=== PATIENT | female | born 1940 | race Caucasian/White ===

== ENCOUNTER 2018-07-05 09:59 | Inpatient (IN) | payer MEDICARE, BC ==
--- NOTE | 2018-07-05 18:02 | PCM.HP ---
H&P History of Present Illness - General Date of Service: 07/05/18 Admit Problem/Dx: Admission Diagnosis/Problem Admission Diagnosis/Problem CVA, Cerebrovascular accident Source of Information: Patient, Old Records History Limitations: Reports: No Limitations - History of Present Illness Initial Comments - Free Text/Narative: Jose a 78-year-old female with a history of hypertension, rheumatoid arthritis, developmental delay who initially presented with right- sided weakness, confusion,speech changes.Workup revealed a left MCA M2 occlusion on CTAand patient was taken for mechanical thrombectomy on 06/30 by neuro vascular surgery. Echo was also done which demonstrated dilated cardiomyopathy with an ejection fraction of 20%. Cardiology was consulted and a cardiac angiogram was done showing totalLAD proximal occlusion and no intervention was done at this time. Electrophysiology was consulted and a loop recorder was placed for monitoring arrhythmias. Transferred here for rehabilitation. - Related Data Allergies/Adverse Reactions: Allergies Allergy/AdvReac Type Severity Reaction Status Date / Time No Known Allergies Allergy Verified 07/05/18 13:31 Home Medications: Home Meds Acetaminophen [Tylenol Arthritis] 650 mg PO Q8H PRN 07/05/18 [History] Aspirin [Halfprin] 81 mg PO DAILY 07/05/18 [History] Losartan [Cozaar] 25 mg PO DAILY 07/05/18 [History] Metoprolol Succinate [Toprol XL] 12.5 mg PO DAILY 07/05/18 [History] Warfarin Sliding Scale [Coumadin Sliding Scale] 1 ea PO DAILY 07/05/18 [History] atorvaSTATin [Lipitor] 10 mg PO DAILY 07/05/18 [History] Past Medical History HEENT History: Reports: Impaired Vision Cardiovascular History: Reports: Hypertension Other Cardiovascular History: Family Hx: angina, afib, CHF, NH, HTN, high cholesterol, Gastrointestinal History: Reports: Cholelithiasis Other Musculoskeletal History: Hx: back pain and arm fx Hematologic History: Reports: Anemia Oncologic (Cancer) History: Reports: Bone Dermatologic History: Reports: Eczema - Infectious Disease History Infectious Disease History: Reports: Chicken Pox, Measles, Mumps - Past Surgical History HEENT Surgical History: Reports: Cataract Surgery, Other (See Below) Other HEENT Surgeries/Procedures: bilat GI Surgical History: Reports: Appendectomy, Cholecystectomy Female Surgical History: Reports: Hysterectomy, Oophorectomy Musculoskeletal Surgical History: Reports: Knee Replacement, Other (See Below) Other Musculoskeletal Surgeries/Procedures:: bilat. Oncologic Surgical History: Reports: Bone Marrow Aspiration Social & Family History - Tobacco Use Smoking Status *Q: Never Smoker Second Hand Smoke Exposure: No - Caffeine Use Caffeine Use: Reports: Coffee - Recreational Drug Use Recreational Drug Use: No H&P Review of Systems - Review of Systems: Review Of Systems: See Below General: Reports: No Symptoms HEENT: Reports: No Symptoms Pulmonary: Reports: No Symptoms Cardiovascular: Reports: Chest Pain Gastrointestinal: Reports: No Symptoms Genitourinary: Reports: No Symptoms Musculoskeletal: Reports: Muscle Stiffness Skin: Reports: Lesions (Right leg under Dr. Carcamo's care.) Psychiatric: Reports: No Symptoms Neurological: Reports: Difficulty Walking, Weakness, Change in Speech Hematologic/Lymphatic: Reports: No Symptoms Immunologic: Reports: No Symptoms Exam - Exam Exam: See Below - Vital Signs Vital Signs: Last Vital Signs Temp 98.2 F 07/05/18 13:53 Pulse 71 07/05/18 13:53 Resp 20 07/05/18 13:53 BP 133/45 L 07/05/18 13:53 Pulse Ox 96 07/05/18 13:53 Weight: 263 lb - Exam General: Alert, Oriented, Cooperative HEENT: PERRLA, Hearing Intact, Posterior Pharynx Clear, TMs Clear Neck: Trachea Midline, Lymphadenopathy Lungs: Clear to Auscultation, Normal Respiratory Effort. No: Crackles, Rales, Rhonchi, Rub, Stridor Cardiovascular: Regular Rate, Regular Rhythm, Normal S1, Normal S2. No: Systolic Murmur, Diastolic Murmur GI/Abdominal Exam: Normal Bowel Sounds, Soft, Non-Tender, No Organomegaly, No Distention Back Exam: Normal Inspection, Full Range of Motion Extremities: Normal Inspection, Normal Range of Motion, Non-Tender, Other (Mild weakness right arm and leg compared to left.) Skin: Warm, Dry, Intact Neurological: Normal Tone, Other (Patient does not enunciate words well. Her sister says it's about normal for her from before the stroke.) Neuro Extensive - Mental Status: Alert, Oriented x3, Normal Cognition Psychiatric: Alert, Normal Affect, Normal Mood - Problem List (1) Ischemic stroke SNOMED Code(s): 544600122 ICD Code: I63.9 - CEREBRAL INFARCTION, UNSPECIFIED Status: Acute Current Visit: Yes (2) Coronary artery disease SNOMED Code(s): 47910075 ICD Code: I25.10 - ATHSCL HEART DISEASE OF [place] CORONARY ARTERY W/O ANG PCTRS Status: Acute Current Visit: Yes (3) HTN (hypertension) SNOMED Code(s): 38015300 ICD Code: I10 - ESSENTIAL (PRIMARY) HYPERTENSION Status: Acute Current Visit: Yes (4) Dilated cardiomyopathy SNOMED Code(s): 583501054 ICD Code: I42.0 - DILATED CARDIOMYOPATHY Status: Acute Current Visit: Yes Problem List Initiated/Reviewed/Updated: Yes Orders Last 24hrs: Active Orders 24 hr Category Date Time Status Admission Status [Patient Status] [ADT] Routine ADT 07/05/18 13:05 Active Patient Status [ADT] Routine ADT 07/05/18 14:13 Active Height and Weight [RC] FR Care 07/05/18 14:13 Active May Shower [RC] ASDIRECTED Care 07/05/18 14:13 Active Oxygen Therapy [RC] PRN Care 07/05/18 14:13 Active Up With Assistance [RC] ASDIRECTED Care 07/05/18 14:13 Active VTE/DVT Education [RC] Per Unit Routine Care 07/05/18 14:13 Active Vital Signs [RC] 08 Care 07/05/18 14:13 Active OT Evaluation and Treatment [CONS] Routine Cons 07/05/18 14:13 Active PT Evaluation and Treatment [CONS] Routine Cons 07/05/18 14:13 Active Regular Diet [DIET] Diet 07/05/18 Dinner Active INR,PT,PROTHROMBIN TIME [COAG] Q2D Lab 07/08/18 06:00 Ordered INR,PT,PROTHROMBIN TIME [COAG] Q2D Lab 07/10/18 06:00 Ordered INR,PT,PROTHROMBIN TIME [COAG] Q2D Lab 07/12/18 06:00 Ordered INR,PT,PROTHROMBIN TIME [COAG] Q2D Lab 07/14/18 06:00 Ordered INR,PT,PROTHROMBIN TIME [COAG] Q2D Lab 07/16/18 06:00 Ordered Acetaminophen [Tylenol Arthritis Pain] Med 07/05/18 14:12 Active 650 mg PO Q8H PRN Aspirin [Halfprin] Med 07/06/18 09:00 Active 81 mg PO DAILY Losartan [Cozaar] Med 07/06/18 09:00 Active 25 mg PO DAILY Metoprolol Succinate [Toprol XL] Med 07/06/18 09:00 Active 12.5 mg PO DAILY Warfarin Sliding Scale [Coumadin Sliding Scale] Med 07/06/18 09:00 Pending 1 each PO DAILY Warfarin [Coumadin] Med 07/07/18 16:00 Once 5 mg PO ONETIME ONE Warfarin [Coumadin] Med 07/06/18 16:00 Active 7.5 mg PO ONETIME ONE atorvaSTATin [Lipitor] Med 07/06/18 09:00 Active 10 mg PO DAILY Resuscitation Status Routine Resus Stat 07/05/18 14:13 Ordered Medication Orders Acetaminophen (Tylenol Arthritis Pain) 650 mg PO Q8H PRN PRN Reason: Pain Aspirin (Halfprin) 81 mg PO DAILY KELLY Atorvastatin Calcium (Lipitor) 10 mg PO DAILY KELLY Losartan Potassium (Cozaar) 25 mg PO DAILY KELLY Metoprolol Succinate (Toprol Xl) 12.5 mg PO DAILY KELLY Warfarin Sodium (Coumadin Sliding Scale) 1 each PO DAILY KELLY Warfarin Sodium 2.5 mg/ (Warfarin Sodium 5 mg) 7.5 mg PO ONETIME ONE Stop: 07/06/18 16:01 Warfarin Sodium (Coumadin) 5 mg PO ONETIME ONE Stop: 07/07/18 16:01 Assessment/Plan Comment:: 1. Admit to swing bed. 2. Continue the same medications she was on and [facility]. 3. Up with assist. 4. Cardiac diet. 5. PT/OT. 6. Patient has some lesions Dr. Carcamo is looking at. Courtesy consult next week.
[2018-07-06] MEDS ORDERED: Warfarin Sliding Scale PO SCH (09:00)
[2018-07-06] MEDS: atorvaSTATin 10 MG Tab PO SCH (09:01)
[2018-07-06] MEDS: Metoprolol Succinate 25 MG Tab.ER PO SCH (09:01)
[2018-07-06] MEDS: Aspirin 81 MG Tab.EC PO SCH (09:01)
[2018-07-06] MEDS: Losartan 25 MG Tab PO SCH (09:02)
[2018-07-06] MEDS ORDERED: Warfarin 2.5 MG, Warfarin 5 MG PO ONE ×2 (16:00)
[2018-07-07] MEDS: atorvaSTATin 10 MG Tab PO SCH (08:40)
[2018-07-07] MEDS: Aspirin 81 MG Tab.EC PO SCH (08:40)
[2018-07-07] MEDS: Metoprolol Succinate 25 MG Tab.ER PO SCH (08:40)
[2018-07-07] MEDS: Losartan 25 MG Tab PO SCH (08:41)
--- NOTE | 2018-07-07 09:53 | PCM.PN ---
- General Info Date of Service: 07/07/18 Admission Dx/Problem (Free Text): Patient without complaints. She denies chest pain, shortness of breath, speech difficulty or swallowing difficulty. Wound in the right leg is being managed every days doing well and less weeping. - Patient Data Vitals - Most Recent: Last Vital Signs Temp 97.6 F 07/07/18 08:00 Pulse 78 07/07/18 08:40 Resp 20 07/07/18 08:00 BP 102/55 L 07/07/18 08:41 Pulse Ox 96 07/07/18 08:00 Weight - Most Recent: 263 lb Med Orders - Current: Current Medications Acetaminophen (Tylenol Arthritis Pain) 650 mg PO Q8H PRN PRN Reason: Pain Aspirin (Halfprin) 81 mg PO DAILY [facility] Last Admin: 07/07/18 08:40 Dose: 81 mg Atorvastatin Calcium (Lipitor) 10 mg PO DAILY [facility] Last Admin: 07/07/18 08:40 Dose: 10 mg Losartan Potassium (Cozaar) 25 mg PO DAILY [facility] Last Admin: 07/07/18 08:41 Dose: 25 mg Metoprolol Succinate (Toprol Xl) 12.5 mg PO DAILY [facility] Last Admin: 07/07/18 08:40 Dose: 12.5 mg Warfarin Sodium (Coumadin Sliding Scale) 1 each PO DAILY [facility] Warfarin Sodium (Coumadin) 5 mg PO ONETIME ONE Stop: 07/07/18 16:01 Discontinued Medications Warfarin Sodium 2.5 mg/ (Warfarin Sodium 5 mg) 7.5 mg PO ONETIME ONE Stop: 07/06/18 16:01 Last Admin: 07/06/18 15:45 Dose: 7.5 mg - Exam General: Oriented Lungs: Clear to Auscultation, Normal Respiratory Effort Cardiovascular: Regular Rate, No Murmurs Extremities: No Pedal Edema Skin: Other (Ulcers right leg healing nicely. Not able to see any granulation tissue because is covered over anterior posterior) - Problem List & Annotations (1) Ischemic stroke SNOMED Code(s): 540170096 Code(s): I63.9 - CEREBRAL INFARCTION, UNSPECIFIED Status: Acute Current Visit: Yes (2) Coronary artery disease SNOMED Code(s): 10836809 Code(s): I25.10 - ATHSCL HEART DISEASE OF [place] CORONARY ARTERY W/O ANG PCTRS Status: Acute Current Visit: Yes (3) HTN (hypertension) SNOMED Code(s): 22527301 Code(s): I10 - ESSENTIAL (PRIMARY) HYPERTENSION Status: Acute Current Visit: Yes (4) Dilated cardiomyopathy SNOMED Code(s): 009323093 Code(s): I42.0 - DILATED CARDIOMYOPATHY Status: Acute Current Visit: Yes (5) Leg ulcer SNOMED Code(s): 91410608, 529195394 Code(s): L97.909 - NON-PRS CHRONIC ULC UNSP PRT OF UNSP LOW LEG W UNSP SEVERITY Status: Acute Current Visit: Yes - Problem List Review Problem List Initiated/Reviewed/Updated: Yes - My Orders Last 24 Hours: My Active Orders 07/06/18 09:00 Aspirin [Halfprin] 81 mg PO DAILY Losartan [Cozaar] 25 mg PO DAILY Metoprolol Succinate [Toprol XL] 12.5 mg PO DAILY Warfarin Sliding Scale [Coumadin Sliding Scale] 1 each PO DAILY atorvaSTATin [Lipitor] 10 mg PO DAILY 07/07/18 16:00 Warfarin [Coumadin] 5 mg PO ONETIME ONE 07/08/18 06:00 INR,PT,PROTHROMBIN TIME [COAG] Q2D 07/10/18 06:00 INR,PT,PROTHROMBIN TIME [COAG] Q2D 07/12/18 06:00 INR,PT,PROTHROMBIN TIME [COAG] Q2D 07/14/18 06:00 INR,PT,PROTHROMBIN TIME [COAG] Q2D 07/16/18 06:00 INR,PT,PROTHROMBIN TIME [COAG] Q2D - Plan Plan:: 1 continue current care. 2. Courtesy consult for Dr. Carcamo in the a.m. in regards to wound care he was doing outpatient before she ended up in the hospital
[2018-07-07] MEDS: Nitroglycerin 0.4 MG Tab.SL SL PRN ×2 (14:35→15:33)
[2018-07-07] MEDS ORDERED: Sodium Chloride 0.9% 500 ML IV ONE (14:45)
[2018-07-07] MEDS ORDERED: Warfarin 5 MG Tab PO ONE (16:00)
--- NOTE | 2018-07-07 17:09 | PCM.PN ---
- General Info Date of Service: 07/07/18 Admission Dx/Problem (Free Text): Patient had retrosternal chest pressure today with no arm pain, nausea, diaphoresis shortness of breath. Her blood pressure was low so she was placed in the lying position and EKG was done and troponin. She was given 2 nitroglycerin sublingual and her chest pain went away. She is given some IV fluids also - Patient Data Vitals - Most Recent: Last Vital Signs Temp 97.6 F 07/07/18 08:00 Pulse 79 07/07/18 16:00 Resp 20 07/07/18 16:00 BP 107/62 07/07/18 16:00 Pulse Ox 100 07/07/18 16:00 Weight - Most Recent: 263 lb Lab Results Last 24 Hours: Laboratory Results - last 24 hr 07/07/18 Range/Units 14:25 Troponin I 0.031 (<0.017-0.056) ng/mL Med Orders - Current: Current Medications Acetaminophen (Tylenol Arthritis Pain) 650 mg PO Q8H PRN PRN Reason: Pain Aspirin (Halfprin) 81 mg PO DAILY [facility] Last Admin: 07/07/18 08:40 Dose: 81 mg Atorvastatin Calcium (Lipitor) 10 mg PO DAILY [facility] Last Admin: 07/07/18 08:40 Dose: 10 mg Losartan Potassium (Cozaar) 25 mg PO DAILY [facility] Last Admin: 07/07/18 08:41 Dose: 25 mg Metoprolol Succinate (Toprol Xl) 12.5 mg PO DAILY [facility] Last Admin: 07/07/18 08:40 Dose: 12.5 mg Nitroglycerin (Nitrostat) 0.4 mg SL Q5M PRN PRN Reason: Chest Pain Last Admin: 07/07/18 15:33 Dose: 0.4 mg Warfarin Sodium (Coumadin Sliding Scale) 1 each PO DAILY [facility] Discontinued Medications Sodium Chloride (Normal Saline) 500 mls @ 500 mls/hr IV .BOLUS ONE Stop: 07/07/18 15:44 Last Admin: 07/07/18 14:45 Dose: 500 mls/hr Warfarin Sodium 2.5 mg/ (Warfarin Sodium 5 mg) 7.5 mg PO ONETIME ONE Stop: 07/06/18 16:01 Last Admin: 07/06/18 15:45 Dose: 7.5 mg Warfarin Sodium (Coumadin) 5 mg PO ONETIME ONE Stop: 07/07/18 16:01 Last Admin: 07/07/18 16:16 Dose: 5 mg - Exam Lungs: Clear to Auscultation, Normal Respiratory Effort - Problem List & Annotations (1) Ischemic stroke SNOMED Code(s): 711170728 Code(s): I63.9 - CEREBRAL INFARCTION, UNSPECIFIED Status: Acute Current Visit: Yes (2) Coronary artery disease SNOMED Code(s): 33940735 Code(s): I25.10 - ATHSCL HEART DISEASE OF [place] CORONARY ARTERY W/O ANG PCTRS Status: Acute Current Visit: Yes (3) HTN (hypertension) SNOMED Code(s): 30779090 Code(s): I10 - ESSENTIAL (PRIMARY) HYPERTENSION Status: Acute Current Visit: Yes (4) Dilated cardiomyopathy SNOMED Code(s): 176904250 Code(s): I42.0 - DILATED CARDIOMYOPATHY Status: Acute Current Visit: Yes (5) Leg ulcer SNOMED Code(s): 57324681, 792691050 Code(s): L97.909 - NON-PRS CHRONIC ULC UNSP PRT OF UNSP LOW LEG W UNSP SEVERITY Status: Acute Current Visit: Yes - Problem List Review Problem List Initiated/Reviewed/Updated: Yes - My Orders Last 24 Hours: My Active Orders 07/07/18 09:54 Notify Provider Consults [RC] ASDIRECTED 07/07/18 14:19 Nitroglycerin [Nitrostat] 0.4 mg SL Q5M PRN 07/08/18 05:11 Consult to Physician [CONS] AM 07/08/18 06:00 INR,PT,PROTHROMBIN TIME [COAG] Q2D 07/10/18 06:00 INR,PT,PROTHROMBIN TIME [COAG] Q2D 07/12/18 06:00 INR,PT,PROTHROMBIN TIME [COAG] Q2D 07/14/18 06:00 INR,PT,PROTHROMBIN TIME [COAG] Q2D 07/16/18 06:00 INR,PT,PROTHROMBIN TIME [COAG] Q2D - Plan Plan:: 1 decrease Toprol dose and start low-dose Imdur. 2. Troponin was negative EKG showed no significant ST abnormality 3. Monitor blood pressure closely.
[2018-07-07] MEDS ORDERED: Isosorbide Mononitrate 30 MG Tab.ER PO SCH (17:15)
--- NOTE | 2018-07-08 07:52 | PCM.SN ---
- Free Text/Narrative Note: Pt followed as an outpt for ulcerations of both her legs. Had Unna boots applied weekly. Now with dressing changes of Xeroform and kerlix. Given her current rehab situation would continue this current level of care. Will follow with you.
--- NOTE | 2018-07-08 08:43 | PCM.SN ---
- Free Text/Narrative Note: Patient gave me verbal permission to discuss some of her medical findings with her niece Shanna Hair was a nurse. She can related to the patient and her sister when they have questions.
[2018-07-08] MEDS: Losartan 25 MG Tab PO SCH (08:56)
[2018-07-08] MEDS: Aspirin 81 MG Tab.EC PO SCH (08:57)
[2018-07-08] MEDS: atorvaSTATin 10 MG Tab PO SCH (08:57)
[2018-07-08] MEDS ORDERED: Warfarin 5 MG Tab PO ONE (16:00)
[2018-07-09] MEDS: Aspirin 81 MG Tab.EC PO SCH (08:19)
[2018-07-09] MEDS: atorvaSTATin 10 MG Tab PO SCH (08:19)
[2018-07-09] MEDS: Acetaminophen 650 MG Tab.ER PO PRN (08:19)
[2018-07-09] MEDS: Losartan 25 MG Tab PO SCH (08:19)
[2018-07-09] MEDS ORDERED: Warfarin 5 MG Tab PO ONE (16:00)
[2018-07-10] MEDS: Losartan 25 MG Tab PO SCH (08:17)
[2018-07-10] MEDS: atorvaSTATin 10 MG Tab PO SCH (08:17)
[2018-07-10] MEDS: Aspirin 81 MG Tab.EC PO SCH (08:17)
[2018-07-10] MEDS ORDERED: Warfarin 2.5 MG Tab PO ONE (16:00)
[2018-07-11] MEDS: Aspirin 81 MG Tab.EC PO SCH (08:57)
[2018-07-11] MEDS: atorvaSTATin 10 MG Tab PO SCH (08:57)
[2018-07-11] MEDS: Losartan 25 MG Tab PO SCH (09:00)
[2018-07-11] MEDS: Warfarin 5 MG Tab PO SCH (15:27)
[2018-07-12] MEDS: Aspirin 81 MG Tab.EC PO SCH (08:29)
[2018-07-12] MEDS: atorvaSTATin 10 MG Tab PO SCH (08:29)
[2018-07-12] MEDS: Losartan 25 MG Tab PO SCH (08:52)
[2018-07-12] MEDS: Warfarin 5 MG Tab PO SCH (16:35)
[2018-07-13] MEDS: Aspirin 81 MG Tab.EC PO SCH (09:08)
[2018-07-13] MEDS: atorvaSTATin 10 MG Tab PO SCH (09:08)
[2018-07-13] MEDS: Losartan 25 MG Tab PO SCH (10:14)
[2018-07-13] MEDS: Warfarin 5 MG Tab PO SCH (15:53)
[2018-07-14] MEDS: Ferrous Sulfate 325 MG Tab PO SCH ×2 (08:31→17:41)
[2018-07-14] MEDS: atorvaSTATin 10 MG Tab PO SCH (08:31)
[2018-07-14] MEDS: Aspirin 81 MG Tab.EC PO SCH (08:31)
--- NOTE | 2018-07-14 10:21 | PN ---
DATE SEEN: 07/14/2018 HISTORY: Benita is a 78-year-old woman with a history of hypertension, RA, and mild developmental delay. She has been walking with a cane at home and states that she falls occasionally. However, on 06/30/2018, she sustained a fall with right-sided weakness, confusion, speech changes. She was admitted to [facility] in [place] and found to have an occlusive left MCA lesion on CT angiogram and underwent mechanical thrombectomy. Additional workup included an angiogram showing 20% ejection fraction and a proximal LAD occlusion. She was started on warfarin, Toprol, losartan, and aspirin, and has been at [facility] in [place] for recuperation since 07/05/2018. She states she is doing well. She does not like therapy but is progressing. She is walking the halls partial distance with therapy and a walker. She has been running somewhat low blood pressures, and for this reason, her NELDA inhibitor and beta vinny have been held. PHYSICAL EXAMINATION: GENERAL: She is alert and comfortable this morning. VITAL SIGNS: Blood pressure 96/60, pulse 100 and regular, respirations normal, O2 saturation 96% on room air, temperature 97.2. Last weight on 07/10 253 pounds. SKIN: Anicteric, warm, dry. She has scaling dermatitis in the left lower leg and two small ulcers on the right lower leg. Knees are wrapped and not unwrapped for exam today. They are followed by Dr. Carcamo and treated with gauze and Xeroderm dressings. HEENT: Shows throat to be clear. LUNGS: Clear in the upper lung [place]. She has diminished breath sounds at the bases, but no consolidation. HEART: Regular with an occasional extra systole. No murmur is heard. ABDOMEN: Obese, soft, nontender. EXTREMITIES: Show 1+ edema to the upper tibias palpated through the dressings. LABORATORY DATA: Hemoglobin 9.7, MCV 86. Electrolytes normal. Creatinine 1.1. BNP 8175. Vitamin B12 438. Iron levels and iron binding pending. Albumin 2.4. ASSESSMENT: 1. History of thrombotic cerebrovascular accident, now 2 weeks out in rehab. 2. Coronary artery disease with occluded left anterior descending with cardiomyopathy and ejection fraction of 20%. 3. History of rheumatoid arthritis with poor ambulatory ability. 4. Anemia, normocytic. 5. Anticoagulation for atrial fibrillation. PLAN: She is started on oral iron. Because of her low blood pressure, we will continue to withhold her beta-vinny and NELDA inhibitor, but try and resume these when able. I will recheck a chest x-ray to evaluate heart size, lungs, etc. We will continue with physical therapy and anticipate several days of therapy required yet before return to home. We will continue to provide palliative care measures for her underlying rheumatoid arthritis, weakness, arthritic pain, etc. /[id number] OSMEL/LEE ANN
[2018-07-14] MEDS: Warfarin 5 MG Tab PO SCH (17:36)
[2018-07-14] MEDS: Acetaminophen 650 MG Tab.ER PO PRN (20:18)
[2018-07-15] MEDS: Aspirin 81 MG Tab.EC PO SCH (09:09)
[2018-07-15] MEDS: atorvaSTATin 10 MG Tab PO SCH (09:09)
[2018-07-15] MEDS: Ferrous Sulfate 325 MG Tab PO SCH ×2 (09:09→17:39)
--- NOTE | 2018-07-15 11:14 | PN ---
DATE SEEN: 07/12/2018 HISTORY: Benita is a 78-year-old resident of [place] with a history of hypertension, rheumatoid arthritis, developmental delay, and osteoarthritis, status post left total knee arthroplasty. According to the patient, the patient fell on the morning of 06/30/2018 and had sudden weakness on the right upper and lower extremities with slight slurred speech. She was taken to [facility] in [place] where she was found to have a middle cerebral artery occlusion. She underwent mechanical thrombectomy on 06/30/2018. Postop evaluation included an echocardiogram which showed an ejection fraction of 20%. A cardiac angiogram showed LAD total occlusion. She was started on warfarin, Toprol, aspirin, and losartan, and upon discharge, was admitted to [facility] for further recuperation. Plans are for a followup brain MRI on approximately 20 of July. A loop recorder was placed, and she will have interrogation of this scheduled for later today. Benita also has chronic venous stasis ulcers in the legs followed by Dr. Carcamo. PHYSICAL EXAMINATION: GENERAL: She is alert and comfortable. VITAL SIGNS: Blood pressure is 112/63, pulse 94 and regular, respirations normal, O2 saturation 94% on room air, temperature 98.2, admission weight 253 pounds. SKIN: Anicteric. Warm, dry. There is a bandage over left anterior chest overlying a loop recorder. Both legs have Unna boots on for leg ulcers and were not unwrapped. HEENT: Shows her mouth to be dry. Speech is somewhat dysarthric but easily understandable. LUNGS: Clear to the bases. HEART: Regular without murmur or gallop. ABDOMEN: Soft and nontender. NEUROLOGIC: Motor exam reveals a slight weakness in the right upper extremity. She is assisted to stand with her walker and she walks unassisted in the small loop around the room with an antalgic gait on the right. LABORATORY DATA: Last INR 2.68. ASSESSMENT: 1. 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 2. Coronary artery disease with left anterior descending obstruction and global hypokinesis with an ejection fraction of 20%. 3. Osteoarthritis, status post left total knee arthroplasty. 4. Chronic essential hypertension. 5. History of rheumatoid arthritis. 6. Loop recorder in place left anterior chest. PLAN: We will continue rehab therapy. Anticipate her discharge to home, and we will pursue cardiac followup evaluating loop recorder and the MRI for brain viability in another week. We will continue to provide palliative care measures for underlying osteoarthritis, poor mobility, etc. /[id number] OSMEL/LEE ANN
[2018-07-16 08:12] LABS: IRON BIND.CAP.(TIBC) 288 ug/dL (250-450); IRON SATURATION 8 % (15-55); IRON, SERUM 23 ug/dL (27-139); UIBC 265 ug/dL (118-369)
--- NOTE | 2018-07-16 08:27 | CR ---
INDICATION: CHF. CHEST TWO VIEWS: PA and lateral views of the chest were obtained 07/14/18--no comparisons. The aorta is tortuous with calcification in the arch. Bridging hyperostotic changes noted in the mid to lower thoracic spine. The heart appears enlarged in general. There may be some very minimal infiltrate at the costophrenic angles. This could be on the basis of fibrosis or possibly minimal patchy pneumonia. No gross consolidating pneumonia, or effusion was seen. No definite evidence of CHF is seen. IMPRESSION: 1. No definite acute process. 2. ASHD. 3. DJD spine. MTDD
[2018-07-16] MEDS ORDERED: Magnesium Hydroxide 400 MG/5 ML Susp 30 ML Cup PO PRN (08:35)
[2018-07-16] MEDS: Ferrous Sulfate 325 MG Tab PO SCH ×2 (09:11→18:52)
[2018-07-16] MEDS: atorvaSTATin 10 MG Tab PO SCH (09:11)
[2018-07-16] MEDS: Aspirin 81 MG Tab.EC PO SCH (09:12)
[2018-07-16] MEDS ORDERED: Warfarin 2.5 MG Tab PO SCH (16:00)
[2018-07-17 02:02] VITALS: BP 101/56
[2018-07-17] MEDS: Aspirin 81 MG Tab.EC PO SCH (08:20)
[2018-07-17] MEDS: atorvaSTATin 10 MG Tab PO SCH (08:21)
[2018-07-17] MEDS: Ferrous Sulfate 325 MG Tab PO SCH (08:21)
[2018-07-17] MEDS ORDERED: Losartan 25 MG Tab PO SCH (09:00)
[2018-07-17] MEDS ORDERED: Metoprolol Succinate 25 MG Tab.ER PO SCH (09:00)
--- NOTE | 2018-07-17 14:19 | DISCH ---
DISCHARGE DATE: 07/17/2018 HISTORY: Benita is a 78-year-old woman with a history of hypertension, RA, mild developmental delay, and poor ambulation. She sustained a fall on 06/30/2018, and was found to have right-sided weakness, confusion, and an occlusive left middle cerebral artery stroke. She underwent mechanical thrombectomy. Additional workup included angiogram showing only a 20% ejection fraction with a proximal left anterior descending occlusion. She was started on Toprol, losartan, aspirin, and warfarin and discharged to [facility] for rehab. She has been doing well. She is walking better. Her mentation is good. Her speech is back to baseline. She has no demonstrable unilateral weakness. She had been mildly hypotensive during the admission and her metoprolol and Cozaar were held. They were resumed on the day of admission at low dose. She is discharged to her home with Home Health Care followup. MEDICATIONS ON DISCHARGE: 1. Warfarin 5 mg tablets, 2.5 to 5 mg based on INR. 2. Nitroglycerin sublingual daily. 3. Toprol-XL 25 mg 1/2 tablet daily. 4. Losartan 25 mg daily. 5. Iron sulfate 325 mg b.i.d. 6. Atorvastatin 10 mg daily. 7. Aspirin 81 mg daily. 8. Tylenol p.r.n. PHYSICAL EXAMINATION: GENERAL: [place] exam on the day of discharge included her to be in good spirits. SKIN: Showed mild erythema but no open ulcers on her legs. EXTREMITIES: There is trace edema at each ankle. NEUROLOGIC: Motor exam appeared symmetric. DISCHARGE INSTRUCTIONS: Benita will require home health care for assessment of vital signs, blood pressure, medications, compliance, heart and lung evaluation, and physical therapy supervision. She is asked to have a followup INR in 1 week and visit to her physician in 2 weeks at the clinic. Recheck sooner p.r.n. /[id number] OSMEL/LEE ANN
[2018-07-17] MEDS ORDERED: Warfarin 5 MG Tab PO SCH (16:00)
--- NOTE | 2018-07-18 11:12 | MY ---
INDICATION: Cancer screening. MAMMOGRAPHY: Two-view bilateral digital screening 2-D mammography with computer aided detection was obtained 07/17/18 and compared with mammograms back to 04/10/11. DENSITY: Asymmetrical scattered areas of fibroglandular density are again noted. An electronic device is now noted in the lower inner quadrant area of the chest wall on the left. No significant interval change, dominant mass lesions, pathologic calcifications , skin thickening, or dimpling could be identified to suggest malignancy. IMPRESSION: Mammography negative for malignancy. Yearly screening mammography recommended for follow-up. Category 1, negative. A letter will be sent to the patient indicating the results of her mammogram in lay terminology. JERI
== END 2018-07-17 14:10 | disposition home health service (06) | DRG 948 ==
LOC: FB.MS 13:22
PROVIDERS: ADMIT Family Medicine; ATTEND Family Medicine
DX: R53.1 Weakness (principal); I69.851 Hemiplegia and hemiparesis following other cerebrovascular disease affecting right dominant side; I42.0 Dilated cardiomyopathy; L97.819 Non-pressure chronic ulcer of other part of right lower leg with unspecified severity; L97.829 Non-pressure chronic ulcer of other part of left lower leg with unspecified severity; I25.10 Atherosclerotic heart disease of native coronary artery without angina pectoris; I10 Essential (primary) hypertension; M06.9 Rheumatoid arthritis, unspecified; R62.50 Unspecified lack of expected normal physiological development in childhood; M19.90 Unspecified osteoarthritis, unspecified site; Z96.652 Presence of left artificial knee joint; I83.018 Varicose veins of right lower extremity with ulcer other part of lower leg; I83.028 Varicose veins of left lower extremity with ulcer other part of lower leg; Z79.82 Long term (current) use of aspirin; Z79.01 Long term (current) use of anticoagulants; R07.89 Other chest pain; D64.9 Anemia, unspecified; I48.91 Unspecified atrial fibrillation; Z79.899 Other long term (current) drug therapy
CPT/HCPCS: 36415; 71046; 77067; 80053; 82270; 82607; 83540; 83550; 83735; 83880; 84484; 85025; 85045; 85610; 92610-GN; 97110-GO; 97110-GP; 97116-GP; 97161-GP; 97165-GO; 97530-GO; 97530-GP; 97535-GO; A9270-GY; J7040

== ENCOUNTER 2018-09-05 17:00 | Observation (INO) | payer MEDICARE, BC ==
--- NOTE | 2018-09-05 18:07 | EDM.PDOC ---
ED HPI GENERAL MEDICAL PROBLEM - General Chief Complaint: Head Injury Stated Complaint: fall Time Seen by Provider: 09/05/18 17:00 Source of Information: Reports: Patient History Limitations: Reports: No Limitations - History of Present Illness INITIAL COMMENTS - FREE TEXT/NARRATIVE: patient comes in today with her sister following a fall on her patio out-of- doors earlier this afternoon. EMS was on scene and helped her get up, and then recommended she be evaluated in the emergency room but she did come by private car. No one else witnessed the fall. Patient doesn't remember what happened, she states that her feet seemed to get tangled up and then she fell backwards landing on her butt, and then subsequently striking her head. She was on cement at that time. She did not lose consciousness per her report. Significant concern raised by caregivers of increased fatigue and patient seeming much more confused over the last 2 days. Patient herself states that she feels "dizzy" and is unable to otherwise quantify this. She is alert and denies any headache, change in vision, numbness or tingling on either side of her body. Bilateral Leg Pain Score (Numeric/FACES): 4 - Related Data Allergies Allergy/AdvReac Type Severity Reaction Status Date / Time No Known Allergies Allergy Verified 09/05/18 20:00 Home Meds: Home Meds Acetaminophen [Tylenol Arthritis] 650 mg PO Q8H PRN 07/05/18 [History] Aspirin [Halfprin] 81 mg PO DAILY 07/05/18 [History] Ferrous Sulfate 325 mg PO BIDMEALS #60 tablet 07/17/18 [Rx] Losartan [Cozaar] 25 mg PO DAILY #30 tablet 07/17/18 [Rx] Metoprolol Succinate [Toprol XL] 12.5 mg PO DAILY #30 tab.er 07/17/18 [Rx] Nitroglycerin [Nitrostat] 0.4 mg SL Q5M PRN #25 tab.sl 07/17/18 [Rx] atorvaSTATin [Lipitor] 10 mg PO DAILY #90 tablet 07/17/18 [Rx] Warfarin [Coumadin] 2.5 mg PO ASDIRECTED 09/05/18 [History] Past Medical History HEENT History: Reports: Impaired Vision Cardiovascular History: Reports: Hypertension Other Cardiovascular History: Family Hx: angina, afib, CHF, ME, HTN, high cholesterol, Gastrointestinal History: Reports: Cholelithiasis Other Musculoskeletal History: Hx: back pain and arm fx Hematologic History: Reports: Anemia Oncologic (Cancer) History: Reports: Bone Dermatologic History: Reports: Eczema - Infectious Disease History Infectious Disease History: Reports: Chicken Pox, Measles, Mumps - Past Surgical History HEENT Surgical History: Reports: Cataract Surgery, Other (See Below) Other HEENT Surgeries/Procedures: bilat GI Surgical History: Reports: Appendectomy, Cholecystectomy Female Surgical History: Reports: Hysterectomy, Oophorectomy Musculoskeletal Surgical History: Reports: Knee Replacement, Other (See Below) Other Musculoskeletal Surgeries/Procedures:: bilat. Oncologic Surgical History: Reports: Bone Marrow Aspiration Social & Family History - Family History Family Medical History: Unobtainable (confusion) - Tobacco Use Smoking Status *Q: Unknown Ever Smoked - Caffeine Use Caffeine Use: Reports: Coffee - Alcohol Use Alcohol Use History: No - Recreational Drug Use Recreational Drug Use: No ED ROS GENERAL - Review of Systems Review Of Systems: See Below Constitutional: Reports: Malaise, Weakness, Fatigue. Denies: Fever, Chills HEENT: Denies: Ear Pain, Rhinitis, Throat Pain, Vision Change Respiratory: Reports: Cough. Denies: Wheezing, Pleuritic Chest Pain Cardiovascular: Reports: Edema, Lightheadedness. Denies: Chest Pain, Palpitations Endocrine: Denies: Polydypsia, Polyuria GI/Abdominal: Denies: Abdominal Pain, Diarrhea, Melena, Nausea, Vomiting : Denies: Flank Pain, Frequency, Urgency Musculoskeletal: Reports: Other. Denies: Neck Pain, Back Pain Skin: Reports: Wound (both lower legs bandaged. Healing well per notes. ) Neurological: Reports: Confusion, Dizziness. Denies: Headache, Numbness, Seizure, Tingling, Trouble Speaking, Weakness Hematologic/Lymphatic: Denies: Easy Bleeding, Easy Bruising Immunologic: Reports: No Symptoms ED EXAM, GENERAL - Physical Exam Exam: See Below Free Text/Narrative:: General: alert, oriented to self, not certain of place or time. Head appears to be atraumatic with no abrasions, bruises or other lesions. Neck is supple and there is no midline cervical tenderness and she is able to move it freely without any pain. Lungs have slightly decreased sounds, although this may be secondary to body habitus. No crackles or wheezes. Heart is regular rate and rhythm. Abdomen positive bowel sounds, obese and nontender. Peripheral pulses + 2 in the upper extremities, unable to palpate in the lower extremity secondary to significant edema. Bandages in place over both anterior shins which were not removed as they were just seen by surgery earlier in the day. Pupils are equal and reactive, facial muscles are symmetric, and she has equal strength side to side in both the upper and lower extremities. Gait is not observed. Her skin does not show any obvious abrasions or other lesions aside from what is noted above in her lower extremities. Course - Vital Signs Text/Narrative:: patient with new onset change in mental status, increased confusion and fatigue noted by caregivers over the last 2 days. We'll get labs. Head CT ordered she had a fall on Coumadin. Notes reviewed in patient portal and it appears that her lower leg wounds were healing well per Dr. Carcamo's last notes. Last Recorded V/S: Last Vital Signs Temp 36.7 C 09/06/18 16:00 Pulse 84 09/06/18 16:00 Resp 16 09/06/18 16:00 BP 112/68 09/06/18 16:00 Pulse Ox 93 L 09/06/18 16:00 - Orders/Labs/Meds Orders: Active Orders 24 hr Category Date Time Status Patient Status [ADT] Routine ADT 09/05/18 19:32 Active Bedrest Bathroom Privileges [RC] ASDIRECTED Care 09/05/18 19:31 Active Height and Weight [RC] 06 Care 09/05/18 19:31 Active Intake and Output [RC] 06,14,22 Care 09/05/18 19:32 Active Oxygen Therapy [RC] PRN Care 09/05/18 19:32 Active Up With Assistance [RC] ASDIRECTED Care 09/05/18 19:31 Active Vital Signs [RC] 00,04,08,12,16,20 Care 09/05/18 19:32 Active OT Evaluation and Treatment [CONS] Routine Cons 09/05/18 19:31 Active PT Evaluation and Treatment [CONS] Routine Cons 09/05/18 19:31 Active Acetaminophen [Tylenol Arthritis Pain] Med 09/05/18 19:34 Active 650 mg PO Q8H PRN Aspirin [Halfprin] Med 09/06/18 09:00 Active 81 mg PO DAILY Ferrous Sulfate Med 09/06/18 08:00 Active 325 mg PO BIDMEALS Metoprolol Succinate [Toprol XL] Med 09/06/18 09:00 Active 12.5 mg PO DAILY atorvaSTATin [Lipitor] Med 09/06/18 09:00 Active 10 mg PO DAILY Resuscitation Status Routine Resus Stat 09/05/18 19:31 Ordered Medication Orders Acetaminophen (Tylenol Arthritis Pain) 650 mg PO Q8H PRN PRN Reason: Pain Aspirin (Halfprin) 81 mg PO DAILY [facility] Last Admin: 09/06/18 09:26 Dose: 81 mg Atorvastatin Calcium (Lipitor) 10 mg PO DAILY [facility] Last Admin: 09/06/18 09:26 Dose: 10 mg Ferrous Sulfate (Ferrous Sulfate) 325 mg PO BIDMEALS [facility] Last Admin: 09/06/18 09:26 Dose: 325 mg Metoprolol Succinate (Toprol Xl) 12.5 mg PO DAILY [facility] Last Admin: 09/06/18 09:00 Dose: Warfarin Sodium (Coumadin Sliding Scale) 1 each PO ASDIRECTED [facility] Warfarin Sodium (Coumadin) 5 mg PO SuTuWeFrSa@1600 [facility] Last Admin: 09/06/18 15:45 Dose: 5 mg Warfarin Sodium (Coumadin) 2.5 mg PO MoTh@1600 [facility] Labs: Laboratory Tests 09/05/18 09/05/18 09/05/18 Range/Units 18:15 18:15 18:15 WBC 15.3 H (4.5-12.0) X10-3/uL RBC 4.24 (3.23-5.20) x10(6)uL Hgb 11.3 L (11.5-15.5) g/dL Hct 34.8 (30.0-51.3) % MCV 82.1 (80-96) fL MCH 26.6 L (27.7-33.6) pg MCHC 32.4 (32.2-35.4) g/dL RDW 16.6 H (11.5-15.5) % Plt Count 308 (125-369) X10(3)uL MPV 10.5 H (7.4-10.4) fL Add Manual Diff Yes Neutrophils % (Manual) 70 (46-82) % Band Neutrophils % 5 (0-6) % Lymphocytes % (Manual) 15 (13-37) % Monocytes % (Manual) 7 (4-12) % Eosinophils % (Manual) 3 (0-5) % PT (8.7-11.1) INR (0.89-1.13) Sodium 142 (135-145) mmol/L Potassium 4.3 (3.5-5.3) mmol/L Chloride 104 (100-110) mmol/L Carbon Dioxide 29 (21-32) mmol/L BUN 37 H D (7-18) mg/dL Creatinine 1.5 H (0.55-1.02) mg/dL Est Cr Clr Drug Dosing TNP Estimated GFR (MDRD) 34 L (>60) BUN/Creatinine Ratio 24.7 H (9-20) Glucose 93 (80-116) mg/dL Lactic Acid (0.4-2.2) mmol/L Calcium 9.3 (8.6-10.2) mg/dL Magnesium 2.2 (1.8-2.5) mg/dL Total Bilirubin 0.4 (0.1-1.3) mg/dL AST 16 D (5-25) IU/L ALT 26 D (12-36) U/L Alkaline Phosphatase 92 (56-112) IU/L NT-Pro-B Natriuret Pep 6536 H* (<=450) pg/mL Total Protein 7.8 (6.0-8.0) g/dL Albumin 3.2 (3.2-4.6) g/dL Globulin 4.6 g/dL Albumin/Globulin Ratio 0.7 09/05/18 09/05/18 Range/Units 18:15 18:15 WBC (4.5-12.0) X10-3/uL RBC (3.23-5.20) x10(6)uL Hgb (11.5-15.5) g/dL Hct (30.0-51.3) % MCV (80-96) fL MCH (27.7-33.6) pg MCHC (32.2-35.4) g/dL RDW (11.5-15.5) % Plt Count (125-369) X10(3)uL MPV (7.4-10.4) fL Add Manual Diff Neutrophils % (Manual) (46-82) % Band Neutrophils % (0-6) % Lymphocytes % (Manual) (13-37) % Monocytes % (Manual) (4-12) % Eosinophils % (Manual) (0-5) % PT 20.2 H (8.7-11.1) INR 2.10 H (0.89-1.13) Sodium (135-145) mmol/L Potassium (3.5-5.3) mmol/L Chloride (100-110) mmol/L Carbon Dioxide (21-32) mmol/L BUN (7-18) mg/dL Creatinine (0.55-1.02) mg/dL Est Cr Clr Drug Dosing Estimated GFR (MDRD) (>60) BUN/Creatinine Ratio (9-20) Glucose (80-116) mg/dL Lactic Acid 1.3 (0.4-2.2) mmol/L Calcium (8.6-10.2) mg/dL Magnesium (1.8-2.5) mg/dL Total Bilirubin (0.1-1.3) mg/dL AST (5-25) IU/L ALT (12-36) U/L Alkaline Phosphatase (56-112) IU/L NT-Pro-B Natriuret Pep (<=450) pg/mL Total Protein (6.0-8.0) g/dL Albumin (3.2-4.6) g/dL Globulin g/dL Albumin/Globulin Ratio Meds: Medications Generic Name Dose Route Start Last Admin Trade Name Freq PRN Reason Stop Dose Admin Acetaminophen 650 mg 09/05/18 19:34 Tylenol Arthritis Pain PO Q8H PRN Pain Aspirin 81 mg 09/06/18 09:00 09/06/18 09:26 Halfprin PO 81 mg DAILY [facility] Administration Atorvastatin Calcium 10 mg 09/06/18 09:00 09/06/18 09:26 Lipitor PO 10 mg DAILY [facility] Administration Ferrous Sulfate 325 mg 09/06/18 08:00 09/06/18 09:26 Ferrous Sulfate PO 325 mg BIDMEALS [facility] Administration Metoprolol Succinate 12.5 mg 09/06/18 09:00 09/06/18 09:00 Toprol Xl PO Not Given DAILY [facility] Warfarin Sodium 1 each 09/06/18 11:00 Coumadin Sliding Scale PO ASDIRECTED [facility] Warfarin Sodium 5 mg 09/06/18 16:00 09/06/18 15:45 Coumadin PO 5 mg SuTuWeFrSa@1600 [facility] Administration Warfarin Sodium 2.5 mg 09/09/18 16:00 Coumadin PO MoTh@1600 [facility] - Re-Assessments/Exams Free Text/Narrative Re-Assessment/Exam: 09/05/18 18:[address] bocanegra of radiology. He notes no acute hematoma or other intracranial process, however there is a change compared to her previous CT in June noting a new subcortical infarction in the left parietal region. labs pending at this time. Signout given to Dr. Garzon at 7pm. Likely to be admitted secondary to increased confusion, weakness and falls at home. Departure - Departure Time of Disposition: 00:00 (see addendum ) Disposition: Refer to Observation Condition: Undetermined Clinical Impression: Fall - Discharge Information *PRESCRIPTION DRUG MONITORING PROGRAM REVIEWED*: Not Applicable *COPY OF PRESCRIPTION DRUG MONITORING REPORT IN PATIENT LILLIAN: Not Applicable
[2018-09-05] MEDS ORDERED: Acetaminophen 650 MG Tab.ER PO PRN (19:34)
[2018-09-05] MEDS ORDERED: Warfarin 5 MG Tab PO SCH (19:45)
[2018-09-06] MEDS: Metoprolol Succinate 25 MG Tab.ER *PTOM PO SCH (09:00)
[2018-09-06] MEDS: Ferrous Sulfate 325 MG Tab PO SCH ×2 (09:26→18:56)
[2018-09-06] MEDS: Aspirin 81 MG Tab.EC *PTOM PO SCH (09:26)
[2018-09-06] MEDS: atorvaSTATin 10 MG Tab *PTOM PO SCH (09:26)
--- NOTE | 2018-09-06 09:48 | CT ---
INDICATION: Fall, hitting back of head, patient on Coumadin. CT HEAD WITHOUT CONTRAST: Spiral 3.75 mm axial sections were obtained through the brain without contrast with sagittal and coronal reconstructions, 09/05/18, and compared with 07/01/18 [place] images. Total exam DLP = 1,197.75 mGy-cm. The paranasal sinuses and mastoid air cells were well-aerated. No cranial fracture site was identified. No shift of midline structures was identified. Ventricles are prominent, compatible with central atrophy, similar to previous study. There is a new rounded small area of decreased density in the periventricular white matter in the left parietal area, compatible with a subcortical infarct, new compared with the previous study. The loss of definition at the superior portion of the left insula is again noted on coronal image #28, compared with # 31 on the previous examination. There is relative prominence of the sulcus in that area, compatible with localized atrophy. The orbits appear to be intact. There appears to be some minimal patchy decreased density in the white matter, suggesting a mild degree of microvascular disease. No other abnormal areas of density were identified - no bleeding site or hematoma was seen. IMPRESSION: 1. No definite acute intracranial abnormality. The only change compared with the previous examination is a small area of decreased density in the periventricular white matter - left parietal white matter, likely representing an interval subcortical infarct. 2. Minimal microvascular disease. 3. Central atrophy. Report was called to Dr. Young at 1842 hours on 09/05/18. [facility]
[2018-09-06] MEDS ORDERED: Warfarin Sliding Scale PO SCH (11:00)
--- NOTE | 2018-09-06 13:50 | PCM.PN ---
- General Info Date of Service: 09/06/18 Subjective Update: Patient feeling sore this morning. Has bruising across her back from fall yesterday. States she does not feel weak, denies any dizziness or lightheadedness before fall and currently. She sees OT as outpatient and has home health nurse. Her home health nurse had found her yesterday, called in this morning to give update on patient. Family has been trying to get her into assisted living but patient refuses. She was more confused the last 2 days and she was concerned about a UTI. She sees Dr Carcamo for venous stasis ulcers, just dressed yesterday. Home health nurse states that she has an appt with cardiology for angiogram but not sure on the date. States she has chronic angina a couple times a week. She denies any chest pain this morning or shortness of breath. No abdominal pain. - Patient Data Vitals - Most Recent: Last Vital Signs Temp 37.1 C 09/06/18 08:00 Pulse 82 09/06/18 08:00 Resp 18 09/06/18 08:00 BP 86/50 L 09/06/18 08:00 Pulse Ox 92 L 09/06/18 08:00 Weight - Most Recent: 114.124 kg I&O - Last 24 Hours: Intake & Output 09/05/18 09/06/18 09/06/18 22:59 06:59 14:59 Intake Total 200 200 Output Total 0 0 Balance 200 200 Lab Results Last 24 Hours: Laboratory Results - last 24 hr 09/05/18 09/05/18 09/05/18 Range/Units 18:15 18:15 18:15 WBC 15.3 H (4.5-12.0) X10-3/uL RBC 4.24 (3.23-5.20) x10(6)uL Hgb 11.3 L (11.5-15.5) g/dL Hct 34.8 (30.0-51.3) % MCV 82.1 (80-96) fL MCH 26.6 L (27.7-33.6) pg MCHC 32.4 (32.2-35.4) g/dL RDW 16.6 H (11.5-15.5) % Plt Count 308 (125-369) X10(3)uL MPV 10.5 H (7.4-10.4) fL Neut % (Auto) (46-82) % Lymph % (Auto) (13-37) % [place] % (Auto) (4-12) % Eos % (Auto) (1.0-5.0) % Baso % (Auto) (0-2) % Neut # (Auto) (1.6-8.3) # Lymph # (Auto) (0.6-5.0) # [place] # (Auto) (0.0-1.3) # Eos # (Auto) (0.0-0.8) # Baso # (Auto) (0.0-0.2) # Add Manual Diff Yes Neutrophils % (Manual) 70 (46-82) % Band Neutrophils % 5 (0-6) % Lymphocytes % (Manual) 15 (13-37) % Monocytes % (Manual) 7 (4-12) % Eosinophils % (Manual) 3 (0-5) % PT (8.7-11.1) INR (0.89-1.13) Sodium 142 (135-145) mmol/L Potassium 4.3 (3.5-5.3) mmol/L Chloride 104 (100-110) mmol/L Carbon Dioxide 29 (21-32) mmol/L BUN 37 H D (7-18) mg/dL Creatinine 1.5 H (0.55-1.02) mg/dL Est Cr Clr Drug Dosing TNP Estimated GFR (MDRD) 34 L (>60) BUN/Creatinine Ratio 24.7 H (9-20) Glucose 93 (80-116) mg/dL Lactic Acid (0.4-2.2) mmol/L Calcium 9.3 (8.6-10.2) mg/dL Magnesium 2.2 (1.8-2.5) mg/dL Total Bilirubin 0.4 (0.1-1.3) mg/dL AST 16 D (5-25) IU/L ALT 26 D (12-36) U/L Alkaline Phosphatase 92 (56-112) IU/L Troponin I (<0.017-0.056) ng/mL NT-Pro-B Natriuret Pep 6536 H* (<=450) pg/mL Total Protein 7.8 (6.0-8.0) g/dL Albumin 3.2 (3.2-4.6) g/dL Globulin 4.6 g/dL Albumin/Globulin Ratio 0.7 Urine Color (YELLOW) Urine Appearance (CLEAR) Urine pH (5.0-6.5) Ur Specific [place] (1.010-1.025) Urine Protein (NEGATIVE) mg/dL Urine Glucose (UA) (NORMAL) mg/dL Urine Ketones (NEGATIVE) mg/dL Urine Occult Blood (NEGATIVE) Urine Nitrite (NEGATIVE) Urine Bilirubin (NEGATIVE) Urine Urobilinogen (NEGATIVE) mg/dL Ur Leukocyte Esterase (NEGATIVE) Urine RBC (0-5) Urine WBC (0-5) Ur Squamous Epith Cells (NS,R,O) Urine Bacteria (NS) 09/05/18 09/05/18 09/05/18 Range/Units 18:15 18:15 20:15 WBC (4.5-12.0) X10-3/uL RBC (3.23-5.20) x10(6)uL Hgb (11.5-15.5) g/dL Hct (30.0-51.3) % MCV (80-96) fL MCH (27.7-33.6) pg MCHC (32.2-35.4) g/dL RDW (11.5-15.5) % Plt Count (125-369) X10(3)uL MPV (7.4-10.4) fL Neut % (Auto) (46-82) % Lymph % (Auto) (13-37) % [place] % (Auto) (4-12) % Eos % (Auto) (1.0-5.0) % Baso % (Auto) (0-2) % Neut # (Auto) (1.6-8.3) # Lymph # (Auto) (0.6-5.0) # [place] # (Auto) (0.0-1.3) # Eos # (Auto) (0.0-0.8) # Baso # (Auto) (0.0-0.2) # Add Manual Diff Neutrophils % (Manual) (46-82) % Band Neutrophils % (0-6) % Lymphocytes % (Manual) (13-37) % Monocytes % (Manual) (4-12) % Eosinophils % (Manual) (0-5) % PT 20.2 H (8.7-11.1) INR 2.10 H (0.89-1.13) Sodium (135-145) mmol/L Potassium (3.5-5.3) mmol/L Chloride (100-110) mmol/L Carbon Dioxide (21-32) mmol/L BUN (7-18) mg/dL Creatinine (0.55-1.02) mg/dL Est Cr Clr Drug Dosing Estimated GFR (MDRD) (>60) BUN/Creatinine Ratio (9-20) Glucose (80-116) mg/dL Lactic Acid 1.3 (0.4-2.2) mmol/L Calcium (8.6-10.2) mg/dL Magnesium (1.8-2.5) mg/dL Total Bilirubin (0.1-1.3) mg/dL AST (5-25) IU/L ALT (12-36) U/L Alkaline Phosphatase (56-112) IU/L Troponin I (<0.017-0.056) ng/mL NT-Pro-B Natriuret Pep (<=450) pg/mL Total Protein (6.0-8.0) g/dL Albumin (3.2-4.6) g/dL Globulin g/dL Albumin/Globulin Ratio Urine Color Yellow (YELLOW) Urine Appearance Clear (CLEAR) Urine pH 6.0 (5.0-6.5) Ur Specific [place] 1.020 (1.010-1.025) Urine Protein Negative (NEGATIVE) mg/dL Urine Glucose (UA) Normal (NORMAL) mg/dL Urine Ketones Negative (NEGATIVE) mg/dL Urine Occult Blood Negative (NEGATIVE) Urine Nitrite Negative (NEGATIVE) Urine Bilirubin Negative (NEGATIVE) Urine Urobilinogen Normal (NEGATIVE) mg/dL Ur Leukocyte Esterase Negative (NEGATIVE) Urine RBC 0-5 (0-5) Urine WBC 0-5 (0-5) Ur Squamous Epith Cells Occasional (NS,R,O) Urine Bacteria Few H (NS) 09/06/18 09/06/18 09/06/18 Range/Units 06:20 06:20 06:20 WBC 12.0 (4.5-12.0) X10-3/uL RBC 3.77 (3.23-5.20) x10(6)uL Hgb 10.1 L (11.5-15.5) g/dL Hct 30.8 (30.0-51.3) % MCV 81.7 (80-96) fL MCH 26.7 L (27.7-33.6) pg MCHC 32.7 (32.2-35.4) g/dL RDW 16.4 H (11.5-15.5) % Plt Count 228 (125-369) X10(3)uL MPV 10.3 (7.4-10.4) fL Neut % (Auto) 73.3 (46-82) % Lymph % (Auto) 14.6 (13-37) % [place] % (Auto) 9.9 (4-12) % Eos % (Auto) 2 (1.0-5.0) % Baso % (Auto) 0 (0-2) % Neut # (Auto) 8.8 H (1.6-8.3) # Lymph # (Auto) 1.8 (0.6-5.0) # [place] # (Auto) 1.2 (0.0-1.3) # Eos # (Auto) 0.2 (0.0-0.8) # Baso # (Auto) 0.0 (0.0-0.2) # Add Manual Diff Neutrophils % (Manual) (46-82) % Band Neutrophils % (0-6) % Lymphocytes % (Manual) (13-37) % Monocytes % (Manual) (4-12) % Eosinophils % (Manual) (0-5) % PT (8.7-11.1) INR (0.89-1.13) Sodium 142 (135-145) mmol/L Potassium 3.6 (3.5-5.3) mmol/L Chloride 108 (100-110) mmol/L Carbon Dioxide 26 (21-32) mmol/L BUN 28 H (7-18) mg/dL Creatinine 1.1 H (0.55-1.02) mg/dL Est Cr Clr Drug Dosing 35.99 Estimated GFR (MDRD) 48 L (>60) BUN/Creatinine Ratio 25.5 H (9-20) Glucose 95 (80-116) mg/dL Lactic Acid (0.4-2.2) mmol/L Calcium 8.7 (8.6-10.2) mg/dL Magnesium (1.8-2.5) mg/dL Total Bilirubin 0.6 (0.1-1.3) mg/dL AST 12 D (5-25) IU/L ALT 20 D (12-36) U/L Alkaline Phosphatase 74 (56-112) IU/L Troponin I 0.085 H* (<0.017-0.056) ng/mL NT-Pro-B Natriuret Pep (<=450) pg/mL Total Protein 6.5 (6.0-8.0) g/dL Albumin 2.5 L (3.2-4.6) g/dL Globulin 4.0 g/dL Albumin/Globulin Ratio 0.6 Urine Color (YELLOW) Urine Appearance (CLEAR) Urine pH (5.0-6.5) Ur Specific [place] (1.010-1.025) Urine Protein (NEGATIVE) mg/dL Urine Glucose (UA) (NORMAL) mg/dL Urine Ketones (NEGATIVE) mg/dL Urine Occult Blood (NEGATIVE) Urine Nitrite (NEGATIVE) Urine Bilirubin (NEGATIVE) Urine Urobilinogen (NEGATIVE) mg/dL Ur Leukocyte Esterase (NEGATIVE) Urine RBC (0-5) Urine WBC (0-5) Ur Squamous Epith Cells (NS,R,O) Urine Bacteria (NS) Med Orders - Current: Current Medications Acetaminophen (Tylenol Arthritis Pain) 650 mg PO Q8H PRN PRN Reason: Pain Aspirin (Halfprin) 81 mg PO DAILY [facility] Last Admin: 09/06/18 09:26 Dose: 81 mg Atorvastatin Calcium (Lipitor) 10 mg PO DAILY [facility] Last Admin: 09/06/18 09:26 Dose: 10 mg Ferrous Sulfate (Ferrous Sulfate) 325 mg PO BIDMEALS [facility] Last Admin: 09/06/18 09:26 Dose: 325 mg Metoprolol Succinate (Toprol Xl) 12.5 mg PO DAILY [facility] Last Admin: 09/06/18 09:00 Dose: Not Given Warfarin Sodium (Coumadin Sliding Scale) 1 each PO ASDIRECTED [facility] Warfarin Sodium (Coumadin) 5 mg PO SuTuWeFrSa@1600 [facility] Warfarin Sodium (Coumadin) 2.5 mg PO MoTh@1600 [facility] - Exam General: Alert, Oriented, Cooperative, No Acute Distress Lungs: Clear to Auscultation Cardiovascular: Regular Rate, Regular Rhythm GI/Abdominal Exam: Normal Bowel Sounds, Soft, Non-Tender, No Distention Back Exam: Paraspinal Tenderness Extremities: No Pedal Edema Skin: Ecchymosis (between her scapula) - Problem List & Annotations (1) Fall SNOMED Code(s): 4559134, 209229846 Code(s): W19.XXXA - UNSPECIFIED FALL, INITIAL ENCOUNTER Status: Acute Current Visit: Yes Onset Date: ~09/05/18 (2) Coronary artery disease SNOMED Code(s): 75509566 Code(s): I25.10 - ATHSCL HEART DISEASE OF [place] CORONARY ARTERY W/O ANG PCTRS Status: Acute Current Visit: No Qualifiers: Associated angina: with stable angina (3) HTN (hypertension) SNOMED Code(s): 05147980 Code(s): I10 - ESSENTIAL (PRIMARY) HYPERTENSION Status: Acute Current Visit: No (4) Ischemic stroke SNOMED Code(s): 969698925 Code(s): I63.9 - CEREBRAL INFARCTION, UNSPECIFIED Status: Acute Current Visit: No Onset Date: ~06/2018 - Problem List Review Problem List Initiated/Reviewed/Updated: Yes - My Orders Last 24 Hours: My Active Orders 09/06/18 11:00 Warfarin Sliding Scale [Coumadin Sliding Scale] 1 each PO ASDIRECTED 09/06/18 16:00 Warfarin [Coumadin] 5 mg PO SuTuWeFrSa@159909/07/18 10:50 INR,PT,PROTHROMBIN TIME [COAG] DAILY 09/08/18 10:50 INR,PT,PROTHROMBIN TIME [COAG] DAILY 09/09/18 10:50 INR,PT,PROTHROMBIN TIME [COAG] DAILY 09/09/18 16:00 Warfarin [Coumadin] 2.5 mg PO [id number]@159909/10/18 10:50 INR,PT,PROTHROMBIN TIME [COAG] DAILY - Plan Plan:: 1. Admitted for observation, blood pressure was low this morning(asymptomatic), will continue to monitor throughout today. 2. PT/OT to evaluate this morning. 3 BNP elevated but asymptomatic, troponin slightly elevated without symptoms, most likely secondary to CHF. 4 CT head, reviewed imaging, no new acute process. 5. Will continue Home health and OT as outpatient.
[2018-09-06] MEDS ORDERED: Warfarin 5 MG Tab *PTOM PO SCH (16:00)
--- NOTE | 2018-09-06 16:01 | ER ---
DATE SEEN: 09/05/2018 ADDENDUM: The patient was seen by Dr. Avis Young, and I am charged with explaining the results to her. She apparently came because she fell. She does not remember much of what happened. PAST MEDICAL HISTORY: Consistent with a stroke and congestive heart failure. PHYSICAL EXAMINATION: GENERAL: She appears comfortable. She is not in distress. VITAL SIGNS: Her blood pressure is 120/71. She is afebrile. ENT: Normal. NEUROLOGIC: No focal findings; however, she is disoriented to time and place. LABORATORY DATA: BNP was 6,000 and creatinine was 1.5 with a previous baseline of 1.1. UA is pending. CT, the verbal report from Dr. Young showed that there was a new area of subcortical infarct. IMPRESSION: 1. Cerebrovascular accident. 2. Fall. 3. Acute renal insufficiency. 4. History of congestive heart failure. PLAN: We will admit for observation, Physical Therapy evaluation, continue aspirin, Coumadin tonight, and re-evaluate in the morning. /[id number] [place]/MODL
[2018-09-07] MEDS: Ferrous Sulfate 325 MG Tab PO SCH (08:29)
[2018-09-07] MEDS: Metoprolol Succinate 25 MG Tab.ER *PTOM PO SCH (08:30)
[2018-09-07] MEDS: Aspirin 81 MG Tab.EC *PTOM PO SCH (08:31)
[2018-09-07] MEDS: atorvaSTATin 10 MG Tab *PTOM PO SCH (08:31)
[2018-09-07 08:32] VITALS: BP 102/53; PULSE 88
--- NOTE | 2018-09-07 11:14 | PCM.DCSUM1 ---
Discharge Summary - Hospital Course HPI Initial Comments: patient comes in today with her sister following a fall on her patio out-of- doors earlier this afternoon. EMS was on scene and helped her get up, and then recommended she be evaluated in the emergency room but she did come by private car. No one else witnessed the fall. Patient doesn't remember what happened, she states that her feet seemed to get tangled up and then she fell backwards landing on her butt, and then subsequently striking her head. She was on cement at that time. She did not lose consciousness per her report. Significant concern raised by caregivers of increased fatigue and patient seeming much more confused over the last 2 days. Patient herself states that she feels "dizzy" and is unable to otherwise quantify this. She is alert and denies any headache, change in vision, numbness or tingling on either side of her body. Brief History: Hx of stroke June 2018 dx in [facility] Diagnosis: Stroke: No - Discharge Data Discharge Date: 09/07/18 Discharge Disposition: Home, W Home Health Agency 06 Condition: Good - Discharge Diagnosis/Problem(s) (1) Fall SNOMED Code(s): 8900166, 891573485 ICD Code: W19.XXXA - UNSPECIFIED FALL, INITIAL ENCOUNTER Status: Acute Current Visit: Yes Onset Date: ~09/05/18 (2) Coronary artery disease SNOMED Code(s): 91352191 ICD Code: I25.10 - ATHSCL HEART DISEASE OF [place] CORONARY ARTERY W/O ANG PCTRS Status: Acute Current Visit: No Qualifiers: Associated angina: with stable angina (3) HTN (hypertension) SNOMED Code(s): 94501790 ICD Code: I10 - ESSENTIAL (PRIMARY) HYPERTENSION Status: Acute Current Visit: No (4) Ischemic stroke SNOMED Code(s): 761946067 ICD Code: I63.9 - CEREBRAL INFARCTION, UNSPECIFIED Status: Acute Current Visit: No Onset Date: ~06/2018 - Patient Summary/Data Consults: Consultations 09/05/18 19:31 OT Evaluation and Treatment [CONS] Routine Please Evaluate and Treat. OT Reason for Consult: ADL's This query below is only for informational purposes and is not editable. PT Evaluation and Treatment [CONS] Routine Please Evaluate and Treat. PT Reason for Consult: Ambulation This query below is only for informational purposes and is not editable. Hospital Course: Patient was admitted for observation from fall. CT showed new infarct from June. Spoke with Home Health, patient had been seen at [facility] in June for stroke she was not brought to our ER at initial presentation so CVA is chronic from June and not a new/current finding. INR was 2.1 yesterday, 1.6 today, ate more vegetables and juice yesterday than normal. She did well with PT/OT who recommended continuing services as outpatient with Home Health. Her blood pressure yesterday was low in 85/60 but was asymptomatic, kept her overnight to watch her pressures as this may have contributed to her fall. She did well overnight and with therapy this morning. Blood pressures were 110s/70s this morning, will have home health continue to monitor and if needed see her PCP to adjust if continues to remain low. - Patient Instructions Diet: Usual Diet as Tolerated Activity: As Tolerated Notify Provider of: Increased Pain, Swelling and Redness Other/Special Instructions: Monitor blood pressure with home health, if continues to be low may need to adjust with PCP. - Discharge Plan *PRESCRIPTION DRUG MONITORING PROGRAM REVIEWED*: Not Applicable *COPY OF PRESCRIPTION DRUG MONITORING REPORT IN PATIENT LILLIAN: Not Applicable Home Medications: Home Meds Acetaminophen [Tylenol Arthritis] 650 mg PO Q8H PRN 07/05/18 [History] Aspirin [Halfprin] 81 mg PO DAILY 07/05/18 [History] Ferrous Sulfate 325 mg PO BIDMEALS #60 tablet 07/17/18 [Rx] Losartan [Cozaar] 25 mg PO DAILY #30 tablet 07/17/18 [Rx] Metoprolol Succinate [Toprol XL] 12.5 mg PO DAILY #30 tab.er 07/17/18 [Rx] Nitroglycerin [Nitrostat] 0.4 mg SL Q5M PRN #25 tab.sl 07/17/18 [Rx] atorvaSTATin [Lipitor] 10 mg PO DAILY #90 tablet 07/17/18 [Rx] Warfarin [Coumadin] 2.5 mg PO ASDIRECTED 09/05/18 [History] Forms: ED Department Discharge Referrals: Nate Arana MD [Primary Care Provider] - - Discharge Summary/Plan Comment DC Time >30 min.: Yes - General Info Date of Service: 09/07/18 Subjective Update: Patient is feeling good this morning would like to go home. Soreness is improved , no lightheadedness or dizziness today. Was incontinent overnight. Legs are weeping a bit through the dressing. Will discuss with Dr Carcamo if he would like dressing redone before discharge to home. - Patient Data Vitals - Most Recent: Last Vital Signs Temp 36.7 C 09/07/18 08:00 Pulse 88 09/07/18 08:30 Resp 16 09/07/18 08:00 BP 102/53 L 09/07/18 08:30 Pulse Ox 97 09/07/18 08:00 Weight - Most Recent: 109.86 kg Lab Results - Last 24 hrs: Laboratory Results - last 24 hr 09/07/18 Range/Units 06:10 PT 16.0 H (8.7-11.1) INR 1.66 H (0.89-1.13) Med Orders - Current: Current Medications Acetaminophen (Tylenol Arthritis Pain) 650 mg PO Q8H PRN PRN Reason: Pain Last Admin: 09/07/18 08:29 Dose: 650 mg Aspirin (Halfprin) 81 mg PO DAILY [facility] Last Admin: 09/07/18 08:31 Dose: 81 mg Atorvastatin Calcium (Lipitor) 10 mg PO DAILY [facility] Last Admin: 09/07/18 08:31 Dose: 10 mg Ferrous Sulfate (Ferrous Sulfate) 325 mg PO BIDMEALS [facility] Last Admin: 09/07/18 08:29 Dose: 325 mg Metoprolol Succinate (Toprol Xl) 12.5 mg PO DAILY [facility] Last Admin: 09/07/18 08:30 Dose: 12.5 mg Warfarin Sodium (Coumadin Sliding Scale) 1 each PO ASDIRECTED [facility] Warfarin Sodium (Coumadin) 2.5 mg PO MoTh@1600 [facility] Warfarin Sodium (Coumadin) 5 mg PO SuTuWeFrSa@1600 [facility] Warfarin Sodium (Coumadin) 7.5 mg PO Sa@1600 [facility] Discontinued Medications Warfarin Sodium (Coumadin) 5 mg PO SuTuWeFrSa@1600 [facility] Last Admin: 09/06/18 15:45 Dose: 5 mg - Exam General: Reports: Alert, Oriented Neck: Reports: Supple Lungs: Reports: Clear to Auscultation, Normal Respiratory Effort Cardiovascular: Reports: Regular Rate, Regular Rhythm GI/Abdominal Exam: Normal Bowel Sounds, Soft, Non-Tender, No Distention Extremities: No Pedal Edema
[2018-09-07] MEDS ORDERED: Warfarin 5 MG Tab *PTOM PO SCH (16:00)
[2018-09-08] MEDS ORDERED: Warfarin 5 MG Tab *PTOM PO SCH (16:00)
--- NOTE | 2018-09-09 10:29 | PCM.HP ---
H&P History of Present Illness - General Date of Service: 09/06/18 Admit Problem/Dx: Admission Diagnosis/Problem Admission Diagnosis/Problem Altered mental status Source of Information: Patient - History of Present Illness Initial Comments - Free Text/Narative: patient comes in today with her sister following a fall on her patio out-of- doors earlier this afternoon. EMS was on scene and helped her get up, and then recommended she be evaluated in the emergency room but she did come by private car. No one else witnessed the fall. Patient doesn't remember what happened, she states that her feet seemed to get tangled up and then she fell backwards landing on her butt, and then subsequently striking her head. She was on cement at that time. She did not lose consciousness per her report. Significant concern raised by caregivers of increased fatigue and patient seeming much more confused over the last 2 days. Patient herself states that she feels "dizzy" and is unable to otherwise quantify this. She is alert and denies any headache, change in vision, numbness or tingling on either side of her body. Symptom Onset Date: 09/05/18 Location: Reports: Back Front/Back Full Body Diagram: 1 - ecchymosis Bilateral Leg Pain Score (Numeric/FACES): 3 - Related Data Allergies/Adverse Reactions: Allergies Allergy/AdvReac Type Severity Reaction Status Date / Time No Known Allergies Allergy Verified 09/05/18 20:00 Home Medications: Home Meds Acetaminophen [Tylenol Arthritis] 650 mg PO Q8H PRN 07/05/18 [History] Aspirin [Halfprin] 81 mg PO DAILY 07/05/18 [History] Ferrous Sulfate 325 mg PO BIDMEALS #60 tablet 07/17/18 [Rx] Losartan [Cozaar] 25 mg PO DAILY #30 tablet 07/17/18 [Rx] Metoprolol Succinate [Toprol XL] 12.5 mg PO DAILY #30 tab.er 07/17/18 [Rx] Nitroglycerin [Nitrostat] 0.4 mg SL Q5M PRN #25 tab.sl 07/17/18 [Rx] atorvaSTATin [Lipitor] 10 mg PO DAILY #90 tablet 07/17/18 [Rx] Warfarin [Coumadin] 2.5 mg PO MoTh@1600 tablet 09/07/18 [Rx] Warfarin [Coumadin] 5 mg PO SuTuWeFrSa@1600 tablet 09/07/18 [Rx] Warfarin [Coumadin] 7.5 mg PO Sa@1600 tablet 09/07/18 [Rx] Past Medical History HEENT History: Reports: Impaired Vision Other HEENT History: Wears glasses. Cardiovascular History: Reports: Hypertension Other Cardiovascular History: Family Hx: angina, afib, CHF, HI, HTN, high cholesterol, Gastrointestinal History: Reports: Cholelithiasis Other Musculoskeletal History: Hx: back pain and arm fx Neurological History: Reports: Concussion, TIA Hematologic History: Reports: Anemia Oncologic (Cancer) History: Reports: Bone Dermatologic History: Reports: Eczema Other Dermatologic History: Sees Dr. Gifford one a week for wound treatment, bothlegs. - Infectious Disease History Infectious Disease History: Reports: Chicken Pox, Measles, Mumps - Past Surgical History HEENT Surgical History: Reports: Cataract Surgery, Other (See Below) Other HEENT Surgeries/Procedures: bilat GI Surgical History: Reports: Appendectomy, Cholecystectomy Female Surgical History: Reports: Hysterectomy, Oophorectomy Musculoskeletal Surgical History: Reports: Knee Replacement, Other (See Below) Other Musculoskeletal Surgeries/Procedures:: bilat. Oncologic Surgical History: Reports: Bone Marrow Aspiration Social & Family History - Family History Family Medical History: Unobtainable (confusion) - Tobacco Use Smoking Status *Q: Unknown Ever Smoked - Caffeine Use Caffeine Use: Reports: Coffee - Recreational Drug Use Recreational Drug Use: No H&P Review of Systems - Review of Systems: Review Of Systems: See Below General: Reports: No Symptoms HEENT: Reports: No Symptoms Pulmonary: Reports: No Symptoms Cardiovascular: Reports: No Symptoms Gastrointestinal: Reports: No Symptoms Musculoskeletal: Reports: Back Pain, Muscle Pain, Muscle Stiffness Skin: Reports: Bruising Psychiatric: Reports: Confusion Exam - Exam Exam: See Below - Vital Signs Vital Signs: Last Vital Signs Temp 36.7 C 09/07/18 08:00 Pulse 88 09/07/18 08:30 Resp 16 09/07/18 08:00 BP 102/53 L 09/07/18 08:30 Pulse Ox 97 09/07/18 08:00 Weight: 109.86 kg - Exam General: Alert, Oriented Lungs: Clear to Auscultation, Normal Respiratory Effort Cardiovascular: Regular Rate, Regular Rhythm GI/Abdominal Exam: Normal Bowel Sounds, Soft, Non-Tender, No Distention Back Exam: Paraspinal Tenderness Extremities: No Pedal Edema Skin: Warm, Dry, Intact, Ecchymosis (between scapula) - Patient Data Result Diagrams: 09/06/18 06:20 09/06/18 06:20 *Q Meaningful Use (ADM) - VTE *Q VTE Mechanical Contraindications *Q: At Risk for Falls - Problem List (1) Fall SNOMED Code(s): 8047996, 685036519 ICD Code: W19.XXXA - UNSPECIFIED FALL, INITIAL ENCOUNTER Status: Acute Onset Date: ~09/05/18 (2) Coronary artery disease SNOMED Code(s): 21298364 ICD Code: I25.10 - ATHSCL HEART DISEASE OF [place] CORONARY ARTERY W/O ANG PCTRS Status: Acute Qualifiers: Associated angina: with stable angina (3) HTN (hypertension) SNOMED Code(s): 01796342 ICD Code: I10 - ESSENTIAL (PRIMARY) HYPERTENSION Status: Acute (4) Ischemic stroke SNOMED Code(s): 646488655 ICD Code: I63.9 - CEREBRAL INFARCTION, UNSPECIFIED Status: Acute Onset Date: ~06/2018 Problem List Initiated/Reviewed/Updated: Yes Assessment/Plan Comment:: 1. Admitted for observation, blood pressure was low this morning(asymptomatic), will continue to monitor throughout today. 2. PT/OT to evaluate this morning. 3 BNP elevated but asymptomatic, troponin slightly elevated without symptoms, most likely secondary to CHF. 4 CT head, reviewed imaging, no new acute process. 5. Will continue Home health and OT as outpatient.
[2018-09-09] MEDS ORDERED: Warfarin 5 MG Tab *PTOM PO SCH (16:00)
== END 2018-09-07 11:50 | disposition home health service (06) ==
LOC: FB.ED 17:00 → FB.MS 19:37
PROVIDERS: ADMIT Family Medicine; ATTEND Family Medicine
DX: R41.82 Altered mental status, unspecified (principal); S00.93XA Contusion of unspecified part of head, initial encounter; I25.10 Atherosclerotic heart disease of native coronary artery without angina pectoris; I10 Essential (primary) hypertension; I63.9 Cerebral infarction, unspecified; D64.9 Anemia, unspecified; Z79.82 Long term (current) use of aspirin; Z79.899 Other long term (current) drug therapy; Z79.01 Long term (current) use of anticoagulants; W19.XXXA Unspecified fall, initial encounter
CPT/HCPCS: 36415; 70450; 80053; 81001; 83605; 83735; 83880; 84484; 85025; 85610; 97161; 99284; A9270; G0378

== ENCOUNTER 2021-06-24 11:50 | Emergency (ER) | payer MEDICARE, BC ==
[2021-06-24] MEDS ORDERED: Alum Hydroxide/Mag Hydroxide 15 ML, Lidocaine 2% 15 ML PO ONE ×2 (12:13)
[2021-06-24 12:54] VITALS: BP 141/72; PULSE 69
== END 2021-06-24 13:40 | disposition home or self-care (01) ==
LOC: FB.ED 11:50
DX: R10.13 Epigastric pain (principal); I10 Essential (primary) hypertension; Z79.899 Other long term (current) drug therapy; Z79.82 Long term (current) use of aspirin; Z79.01 Long term (current) use of anticoagulants; Z90.49 Acquired absence of other specified parts of digestive tract; Z90.710 Acquired absence of both cervix and uterus
CPT/HCPCS: 36415; 71046; 80053; 83690; 84484; 85027; 85610; 93005; 99285-25

== ENCOUNTER 2023-01-17 07:00 | Emergency (ER) | payer MEDICARE, BC ==
[2023-01-17 07:45] LABS: BASOPHILS ABSOLUTE AUTO 0.1 x10-3/uL (0.0-0.1); BASOPHILS PERCENT AUTO 0.7 % (0.2-1.5); EOSINOPHILS ABSOLUTE AUTO 0.3 x10-3/uL (0.0-0.8); EOSINOPHILS PERCENT AUTO 3.4 % (0.6-8.1); HEMATOCRIT 34.3 % (34.2-48.2); LYMPHOCYTES ABSOLUTE AUTO 1.1 x10-3/uL (1.0-4.4); LYMPHOCYTES PERCENT AUTO 13.5 % (18.4-52.1); MEAN CORPUSCULAR HEMOGLOBIN 27.4 pg (23.9-33.9); MEAN CORPUSCULAR HGB CONC 32.1 g/dL (31.9-34.8); MEAN CORPUSCULAR VOLUME 85.3 fL (76.7-100.5); MONOCYTES ABSOLUTE AUTO 0.7 x10-3/uL (0.3-1.0); MONOCYTES PERCENT AUTO 8.3 % (4.4-15.7); NEUTROPHILS PERCENT AUTO 74.1 % (30.8-76.2); PLATELET COUNT,PLT 272 x10(3)uL (151-488); RED BLOOD CELL COUNT 4.02 x10(6)uL (3.60-5.20); RED CELL DISTRIBUTION WIDTH 16.7 % (12.3-16.5); WHITE BLOOD CELL COUNT,WBC 8.2 x10-3/uL (3.0-10.3)
[2023-01-17 07:53] LABS: BLOOD UREA NITROGEN,BUN 24 mg/dL (7-18); BUN/CREATININE RATIO 18.5 (9-20); CALCIUM 9.2 mg/dL (8.6-10.2); CARBON DIOXIDE,CO2 32 mmol/L (21-32); CHLORIDE,CL 107 mmol/L (100-110); CREATININE 1.3 mg/dL (0.55-1.02); ESTIMATED GFR 42 mL/min (>60); GLUCOSE RANDOM 96 mg/dL (80-116); POTASSIUM,K 3.9 mmol/L (3.5-5.3); SODIUM,NA 144 mmol/L (135-145)
[2023-01-17 07:55] LABS: INR 1.64 (1.00-1.24); PROTHROMBIN TIME 16.7 sec (9.0-11.1)
[2023-01-17 08:04] LABS: A/G RATIO 0.6; ALANINE AMINOTRANSFERASE,ALT 24 U/L (12-36); ALBUMIN 2.8 g/dL (3.2-4.6); ALKALINE PHOSPHATASE 98 IU/L (56-112); ASPARTATE AMNIOTRANSFERASE,AST 22 IU/L (5-25); BILIRUBIN TOTAL 0.5 mg/dL (0.1-1.3); PROTEIN TOTAL,TP 7.3 g/dL (6.0-8.0)
[2023-01-17] MEDS ORDERED: Ondansetron 4 MG Tab.DIS ONE (08:04)
[2023-01-17] MEDS ORDERED: Ondansetron 4 MG Tab.DIS PO ONE (08:05)
[2023-01-17 08:24] LABS: BILIRUBIN,URINE NEGATIVE (NEGATIVE); GLUCOSE,URINE NORMAL (NORMAL); KETONES,URINE NEGATIVE (NEGATIVE); LEUKOCYTE ESTERASE,URINE NEGATIVE (NEGATIVE); NITRITE,URINE NEGATIVE (NEGATIVE); OCCULT BLOOD,URINE NEGATIVE (NEGATIVE); PROTEIN,URINE NEGATIVE (NEGATIVE); UROBILINOGEN,URINE NORMAL (NEGATIVE)
[2023-01-17 08:27] LABS: APPEARANCE,URINE CLEAR (CLEAR); BACTERIA,URINE FEW (NS); COLOR,URINE YELLOW (YELLOW); MUCUS,URINE FEW (NS); RBC,URINE 0-5 (0-5); SQUAMOUS EPITHELIAL CELLS,UR MODERATE (NS,R,O); WBC,URINE 0-5 (0-5)
[2023-01-17] MEDS ORDERED: Acetaminophen 500 MG Tab PO ONE (10:16)
[2023-01-17] MEDS ORDERED: Ondansetron 4 MG/2 ML SDV IVPUSH ONE (10:23)
[2023-01-17] MEDS ORDERED: fentaNYL 100 MCG/2 ML SDV IVPUSH ONE (10:23)
[2023-01-17] MEDS ORDERED: Naloxone 0.4 MG/ML SDV IVPUSH PRN (10:23)
[2023-01-17] MEDS: Sodium Chloride 0.9% 10 ML Syringe FLUSH PRN ×2 (10:30→10:40)
[2023-01-17 13:26] VITALS: BP 152/90; PULSE 83
== END 2023-01-17 13:15 | disposition home or self-care (01) ==
LOC: FB.ED 07:00
DX: S00.03XA Contusion of scalp, initial encounter (principal); S10.93XA Contusion of unspecified part of neck, initial encounter; S30.0XXA Contusion of lower back and pelvis, initial encounter; S80.12XA Contusion of left lower leg, initial encounter; S80.11XA Contusion of right lower leg, initial encounter; I11.0 Hypertensive heart disease with heart failure; I50.9 Heart failure, unspecified; E78.00 Pure hypercholesterolemia, unspecified; E66.9 Obesity, unspecified; Z86.73 Personal history of transient ischemic attack (TIA), and cerebral infarction without residual deficits; Z79.01 Long term (current) use of anticoagulants; Z79.899 Other long term (current) drug therapy; W01.198A Fall on same level from slipping, tripping and stumbling with subsequent striking against other object, initial encounter; Y93.01 Activity, walking, marching and hiking; Y92.019 Unspecified place in single-family (private) house as the place of occurrence of the external cause
CPT/HCPCS: 36415; 70450; 72040; 72100; 72125; 73590; 80053; 81001; 83735; 85025; 85610; 96374; 96375; 99284; A9270; J2405; J3010; J3490; Q0162

== ENCOUNTER 2024-02-23 12:42 | Inpatient (IN) | payer MEDICARE, BC ==
[2024-02-23 13:42] LABS: HEMATOCRIT 31.4 % (34.2-48.2); HEMOGLOBIN 9.8 g/dL (11.4-15.5); MEAN CORPUSCULAR HEMOGLOBIN 25.6 pg (23.9-33.9); MEAN CORPUSCULAR HGB CONC 31.4 g/dL (31.9-34.8); MEAN CORPUSCULAR VOLUME 81.6 fL (76.7-100.5); MEAN PLATELET VOLUME 9.4 fL (7.1-12.4); PLATELET COUNT,PLT 317 x10(3)uL (151-488); RED BLOOD CELL COUNT 3.84 x10(6)uL (3.60-5.20); RED CELL DISTRIBUTION WIDTH 17.6 % (12.3-16.5); WHITE BLOOD CELL COUNT,WBC 14.3 x10-3/uL (3.0-10.3)
[2024-02-23 13:45] LABS: BLOOD UREA NITROGEN,BUN 32 mg/dL (7-18); BUN/CREATININE RATIO 21.3 (9-20); CALCIUM 9.2 mg/dL (8.6-10.2); CARBON DIOXIDE,CO2 31 mmol/L (21-32); CHLORIDE,CL 107 mmol/L (100-110); CREATININE 1.5 mg/dL (0.55-1.02); EST CRCL DRUG DOSING (CG) 21.13 mL/min; ESTIMATED GFR 35 mL/min (>60); GLUCOSE RANDOM 105 mg/dL (80-116); POTASSIUM,K 3.5 mmol/L (3.5-5.3); SODIUM,NA 146 mmol/L (135-145)
[2024-02-23 13:51] LABS: A/G RATIO 0.6; ALANINE AMINOTRANSFERASE,ALT 19 U/L (12-36); ALBUMIN 2.7 g/dL (3.2-4.6); ALKALINE PHOSPHATASE 107 IU/L (56-112); ASPARTATE AMNIOTRANSFERASE,AST 13 IU/L (5-25); BILIRUBIN TOTAL 0.5 mg/dL (0.1-1.3); PROTEIN TOTAL,TP 6.9 g/dL (6.0-8.0)
[2024-02-23 13:57] LABS: LACTIC ACID 1.1 mmol/L (0.4-2.0)
[2024-02-23 14:13] LABS: INR 1.64 (1.00-1.24); PROTHROMBIN TIME 16.3 sec (9.0-11.1)
[2024-02-23] MEDS: Furosemide 40 MG/4 ML VIAL IVPUSH STA (14:36)
[2024-02-23] MEDS: Sodium Chloride 0.9% 10 ML Syringe FLUSH PRN (14:36)
[2024-02-23 14:39] LABS: LYMPHOCYTES PERCENT MAN 17 % (13-37); MONOCYTES PERCENT MAN 8 % (4-12); SEG NEUTROPHILS PERCENT MAN 75 % (46-82)
[2024-02-23] MEDS ORDERED: Metoprolol Succinate 100 MG Tab.ER PO ONE (16:44)
[2024-02-23] MEDS: Warfarin** 1 MG TABLET PO ONE (16:58)
[2024-02-23] MEDS: Acetaminophen/HYDROcodone 325-5 MG Tab PO PRN (16:59)
[2024-02-23] MEDS: Metoprolol Succinate 100 MG Tab.ER PO ONE (19:07)
[2024-02-23] MEDS: Nystatin Topical Powder 15 GM Bottle TOP SCH (20:47)
[2024-02-23] MEDS: atorvaSTATin 10 MG Tab PO SCH (20:47)
[2024-02-23] MEDS: Sodium Bicarbonate 650 MG Tab PO SCH (20:47)
[2024-02-24 06:55] LABS: BASOPHILS PERCENT AUTO 0.4 % (0.2-1.5); EOSINOPHILS ABSOLUTE AUTO 0.2 x10-3/uL (0.0-0.8); EOSINOPHILS PERCENT AUTO 2.4 % (0.6-8.1); HEMATOCRIT 28.2 % (34.2-48.2); HEMOGLOBIN 9.2 g/dL (11.4-15.5); LYMPHOCYTES ABSOLUTE AUTO 1.5 x10-3/uL (1.0-4.4); LYMPHOCYTES PERCENT AUTO 15.3 % (18.4-52.1); MEAN CORPUSCULAR HEMOGLOBIN 26.3 pg (23.9-33.9); MEAN CORPUSCULAR HGB CONC 32.5 g/dL (31.9-34.8); MEAN CORPUSCULAR VOLUME 80.8 fL (76.7-100.5); MEAN PLATELET VOLUME 8.8 fL (7.1-12.4); MONOCYTES ABSOLUTE AUTO 1.3 x10-3/uL (0.3-1.0); MONOCYTES PERCENT AUTO 12.7 % (4.4-15.7); NEUTROPHILS PERCENT AUTO 69.2 % (30.8-76.2); PLATELET COUNT,PLT 300 x10(3)uL (151-488); RED CELL DISTRIBUTION WIDTH 17.2 % (12.3-16.5); WHITE BLOOD CELL COUNT,WBC 10.1 x10-3/uL (3.0-10.3)
[2024-02-24 07:00] LABS: INR 1.56 (1.00-1.24); PROTHROMBIN TIME 15.6 sec (9.0-11.1)
[2024-02-24 07:06] LABS: A/G RATIO 0.6; ALANINE AMINOTRANSFERASE,ALT 17 U/L (12-36); ALBUMIN 2.1 g/dL (3.2-4.6); ALKALINE PHOSPHATASE 90 IU/L (56-112); ASPARTATE AMNIOTRANSFERASE,AST 13 IU/L (5-25); BILIRUBIN TOTAL 0.5 mg/dL (0.1-1.3); BLOOD UREA NITROGEN,BUN 28 mg/dL (7-18); CALCIUM 8.6 mg/dL (8.6-10.2); CARBON DIOXIDE,CO2 31 mmol/L (21-32); CHLORIDE,CL 108 mmol/L (100-110); CREATININE 1.4 mg/dL (0.55-1.02); EST CRCL DRUG DOSING (CG) 26.07 mL/min; ESTIMATED GFR 38 mL/min (>60); GLUCOSE RANDOM 77 mg/dL (80-116); POTASSIUM,K 3.1 mmol/L (3.5-5.3); PROTEIN TOTAL,TP 5.8 g/dL (6.0-8.0); SODIUM,NA 148 mmol/L (135-145)
[2024-02-24 07:07] LABS: RED BLOOD CELL COUNT 3.49 x10(6)uL (3.60-5.20)
[2024-02-24] MEDS: Aspirin 81 MG Tab.EC PO SCH (08:57)
[2024-02-24] MEDS: Polyethylene Glycol 3350 Powder 17 GM Packet PO PRN (08:57)
[2024-02-24] MEDS ORDERED: Furosemide 40 MG/4 ML VIAL IVPUSH SCH (09:00)
[2024-02-24] MEDS ORDERED: Warfarin Sliding Scale PO SCH (09:00)
[2024-02-24] MEDS ORDERED: Losartan 50 MG Tab PO SCH (09:00)
[2024-02-24] MEDS ORDERED: Isosorbide Mononitrate 60 MG Tab.ER PO SCH (09:00)
[2024-02-24] MEDS: Potassium Chloride 20 MEQ Tab.ER PO ONE (09:05)
[2024-02-24] MEDS: Furosemide 20 MG/2 ML VIAL IVPUSH ONE (09:05)
[2024-02-24] MEDS: Warfarin 2 MG Tab PO SCH (15:38)
[2024-02-25 06:39] LABS: BASOPHILS ABSOLUTE AUTO 0.1 x10-3/uL (0.0-0.1); BASOPHILS PERCENT AUTO 0.5 % (0.2-1.5); EOSINOPHILS ABSOLUTE AUTO 0.2 x10-3/uL (0.0-0.8); EOSINOPHILS PERCENT AUTO 1.2 % (0.6-8.1); HEMATOCRIT 27.8 % (34.2-48.2); LYMPHOCYTES ABSOLUTE AUTO 1.8 x10-3/uL (1.0-4.4); LYMPHOCYTES PERCENT AUTO 13.1 % (18.4-52.1); MEAN CORPUSCULAR HEMOGLOBIN 25.9 pg (23.9-33.9); MEAN CORPUSCULAR HGB CONC 32.5 g/dL (31.9-34.8); MEAN CORPUSCULAR VOLUME 79.8 fL (76.7-100.5); MEAN PLATELET VOLUME 9.1 fL (7.1-12.4); MONOCYTES PERCENT AUTO 14.6 % (4.4-15.7); NEUTROPHILS ABSOLUTE AUTO 9.5 x10-3/uL (1.5-6.3); NEUTROPHILS PERCENT AUTO 70.6 % (30.8-76.2); PLATELET COUNT,PLT 302 x10(3)uL (151-488); RED BLOOD CELL COUNT 3.48 x10(6)uL (3.60-5.20); RED CELL DISTRIBUTION WIDTH 16.9 % (12.3-16.5); WHITE BLOOD CELL COUNT,WBC 13.5 x10-3/uL (3.0-10.3)
[2024-02-25 06:43] LABS: INR 1.61 (1.00-1.24); PROTHROMBIN TIME 16.1 sec (9.0-11.1)
[2024-02-25 06:49] LABS: A/G RATIO 0.5; ALANINE AMINOTRANSFERASE,ALT 20 U/L (12-36); ALBUMIN 1.9 g/dL (3.2-4.6); ALKALINE PHOSPHATASE 91 IU/L (56-112); ASPARTATE AMNIOTRANSFERASE,AST 20 IU/L (5-25); BILIRUBIN TOTAL 0.5 mg/dL (0.1-1.3); BLOOD UREA NITROGEN,BUN 35 mg/dL (7-18); BUN/CREATININE RATIO 21.9 (9-20); CALCIUM 8.5 mg/dL (8.6-10.2); CARBON DIOXIDE,CO2 30 mmol/L (21-32); CHLORIDE,CL 105 mmol/L (100-110); CREATININE 1.6 mg/dL (0.55-1.02); EST CRCL DRUG DOSING (CG) 22.81 mL/min; ESTIMATED GFR 32 mL/min (>60); GLUCOSE RANDOM 99 mg/dL (80-116); POTASSIUM,K 3.8 mmol/L (3.5-5.3); PROTEIN TOTAL,TP 5.9 g/dL (6.0-8.0); SODIUM,NA 143 mmol/L (135-145)
[2024-02-25] MEDS: Furosemide 40 MG/4 ML VIAL IVPUSH SCH (10:16)
[2024-02-25] MEDS: Warfarin 5 MG Tab PO ONE (16:56)
[2024-02-26 06:21] LABS: BASOPHILS ABSOLUTE AUTO 0.1 x10-3/uL (0.0-0.1); BASOPHILS PERCENT AUTO 0.5 % (0.2-1.5); EOSINOPHILS ABSOLUTE AUTO 0.3 x10-3/uL (0.0-0.8); EOSINOPHILS PERCENT AUTO 2.7 % (0.6-8.1); HEMATOCRIT 27.8 % (34.2-48.2); HEMOGLOBIN 9.1 g/dL (11.4-15.5); LYMPHOCYTES ABSOLUTE AUTO 1.8 x10-3/uL (1.0-4.4); LYMPHOCYTES PERCENT AUTO 16.8 % (18.4-52.1); MEAN CORPUSCULAR HEMOGLOBIN 26.1 pg (23.9-33.9); MEAN CORPUSCULAR HGB CONC 32.8 g/dL (31.9-34.8); MEAN CORPUSCULAR VOLUME 79.5 fL (76.7-100.5); MEAN PLATELET VOLUME 8.7 fL (7.1-12.4); MONOCYTES ABSOLUTE AUTO 1.4 x10-3/uL (0.3-1.0); MONOCYTES PERCENT AUTO 13.2 % (4.4-15.7); NEUTROPHILS PERCENT AUTO 66.8 % (30.8-76.2); PLATELET COUNT,PLT 292 x10(3)uL (151-488); RED CELL DISTRIBUTION WIDTH 16.5 % (12.3-16.5); WHITE BLOOD CELL COUNT,WBC 10.4 x10-3/uL (3.0-10.3)
[2024-02-26 06:30] LABS: A/G RATIO 0.5; ALANINE AMINOTRANSFERASE,ALT 30 U/L (12-36); ALBUMIN 1.8 g/dL (3.2-4.6); ALKALINE PHOSPHATASE 89 IU/L (56-112); ASPARTATE AMNIOTRANSFERASE,AST 30 IU/L (5-25); BILIRUBIN TOTAL 0.6 mg/dL (0.1-1.3); BLOOD UREA NITROGEN,BUN 31 mg/dL (7-18); BUN/CREATININE RATIO 23.8 (9-20); CALCIUM 8.4 mg/dL (8.6-10.2); CARBON DIOXIDE,CO2 33 mmol/L (21-32); CHLORIDE,CL 104 mmol/L (100-110); CREATININE 1.3 mg/dL (0.55-1.02); EST CRCL DRUG DOSING (CG) 28.07 mL/min; ESTIMATED GFR 41 mL/min (>60); GLUCOSE RANDOM 83 mg/dL (80-116); INR 1.79 (1.00-1.24); POTASSIUM,K 3.6 mmol/L (3.5-5.3); PROTEIN TOTAL,TP 5.8 g/dL (6.0-8.0); PROTHROMBIN TIME 17.8 sec (9.0-11.1); SODIUM,NA 142 mmol/L (135-145)
[2024-02-26] MEDS ORDERED: Warfarin 2.5 MG Tab PO ONE (16:00)
[2024-02-26] MEDS: Warfarin 2 MG Tab PO ONE (16:59)
[2024-02-27 04:59] LABS: CREATININE,URINE - PER VOLUME 21 mg/dL; HOURS COLLECTED Random hr; TOTAL VOLUME Random mL
[2024-02-27 06:32] LABS: PLATELET COUNT,PLT 320 x10(3)uL (151-488)
[2024-02-27 06:34] LABS: BASOPHILS PERCENT AUTO 0.5 % (0.2-1.5); EOSINOPHILS ABSOLUTE AUTO 0.4 x10-3/uL (0.0-0.8); EOSINOPHILS PERCENT AUTO 4.1 % (0.6-8.1); HEMATOCRIT 29.1 % (34.2-48.2); HEMOGLOBIN 9.6 g/dL (11.4-15.5); LYMPHOCYTES ABSOLUTE AUTO 1.8 x10-3/uL (1.0-4.4); LYMPHOCYTES PERCENT AUTO 16.9 % (18.4-52.1); MEAN CORPUSCULAR HEMOGLOBIN 26.2 pg (23.9-33.9); MEAN CORPUSCULAR VOLUME 79.4 fL (76.7-100.5); MEAN PLATELET VOLUME 8.7 fL (7.1-12.4); MONOCYTES ABSOLUTE AUTO 1.4 x10-3/uL (0.3-1.0); MONOCYTES PERCENT AUTO 13.7 % (4.4-15.7); NEUTROPHILS ABSOLUTE AUTO 6.8 x10-3/uL (1.5-6.3); NEUTROPHILS PERCENT AUTO 64.8 % (30.8-76.2); RED CELL DISTRIBUTION WIDTH 16.7 % (12.3-16.5); WHITE BLOOD CELL COUNT,WBC 10.5 x10-3/uL (3.0-10.3)
[2024-02-27 06:39] LABS: INR 2.09 (1.00-1.24); PROTHROMBIN TIME 20.5 sec (9.0-11.1)
[2024-02-27 06:40] LABS: RED BLOOD CELL COUNT 3.67 x10(6)uL (3.60-5.20)
[2024-02-27 06:42] LABS: A/G RATIO 0.4; ALBUMIN 1.8 g/dL (3.2-4.6); ALKALINE PHOSPHATASE 99 IU/L (56-112); BLOOD UREA NITROGEN,BUN 28 mg/dL (7-18); BUN/CREATININE RATIO 23.3 (9-20); CARBON DIOXIDE,CO2 35 mmol/L (21-32); CHLORIDE,CL 102 mmol/L (100-110); CREATININE 1.2 mg/dL (0.55-1.02); EST CRCL DRUG DOSING (CG) 30.41 mL/min; ESTIMATED GFR 45 mL/min (>60); GLUCOSE RANDOM 82 mg/dL (80-116); POTASSIUM,K 3.7 mmol/L (3.5-5.3); SODIUM,NA 141 mmol/L (135-145)
[2024-02-27 06:59] LABS: BILIRUBIN TOTAL 0.6 mg/dL (0.1-1.3); CALCIUM 8.7 mg/dL (8.6-10.2)
[2024-02-27 07:10] LABS: ASPARTATE AMNIOTRANSFERASE,AST 82 IU/L (5-25)
[2024-02-27 07:23] LABS: ALANINE AMINOTRANSFERASE,ALT 62 U/L (12-36)
[2024-02-27] MEDS: Loperamide 2 MG Cap PO PRN (10:39)
[2024-02-27] MEDS: Warfarin** 1 MG TABLET PO ONE (16:39)
[2024-02-27] MEDS: Acetaminophen 325 MG Tab PO PRN (16:40)
[2024-02-27] MEDS: Melatonin 3 MG Tab PO PRN (21:23)
[2024-02-28 07:04] LABS: INR 2.48 (1.00-1.24); PROTHROMBIN TIME 23.9 sec (9.0-11.1)
[2024-02-28 07:07] LABS: A/G RATIO 0.5; ALANINE AMINOTRANSFERASE,ALT 96 U/L (12-36); ALBUMIN 2.1 g/dL (3.2-4.6); ALKALINE PHOSPHATASE 115 IU/L (56-112); ASPARTATE AMNIOTRANSFERASE,AST 94 IU/L (5-25); BILIRUBIN TOTAL 0.6 mg/dL (0.1-1.3); BLOOD UREA NITROGEN,BUN 27 mg/dL (7-18); BUN/CREATININE RATIO 20.8 (9-20); CALCIUM 8.9 mg/dL (8.6-10.2); CARBON DIOXIDE,CO2 37 mmol/L (21-32); CHLORIDE,CL 100 mmol/L (100-110); CREATININE 1.3 mg/dL (0.55-1.02); EST CRCL DRUG DOSING (CG) 28.07 mL/min; ESTIMATED GFR 41 mL/min (>60); GLUCOSE RANDOM 90 mg/dL (80-116); POTASSIUM,K 3.4 mmol/L (3.5-5.3); PROTEIN TOTAL,TP 6.8 g/dL (6.0-8.0); SODIUM,NA 142 mmol/L (135-145)
[2024-02-28 07:43] LABS: BASOPHILS PERCENT AUTO 0.2 % (0.2-1.5); EOSINOPHILS ABSOLUTE AUTO 0.5 x10-3/uL (0.0-0.8); EOSINOPHILS PERCENT AUTO 4.8 % (0.6-8.1); HEMATOCRIT 33.6 % (34.2-48.2); HEMOGLOBIN 10.6 g/dL (11.4-15.5); LYMPHOCYTES ABSOLUTE AUTO 1.7 x10-3/uL (1.0-4.4); LYMPHOCYTES PERCENT AUTO 17.1 % (18.4-52.1); MEAN CORPUSCULAR HEMOGLOBIN 25.9 pg (23.9-33.9); MEAN CORPUSCULAR HGB CONC 31.6 g/dL (31.9-34.8); MEAN CORPUSCULAR VOLUME 81.9 fL (76.7-100.5); MONOCYTES ABSOLUTE AUTO 1.2 x10-3/uL (0.3-1.0); MONOCYTES PERCENT AUTO 11.8 % (4.4-15.7); NEUTROPHILS ABSOLUTE AUTO 6.7 x10-3/uL (1.5-6.3); NEUTROPHILS PERCENT AUTO 66.1 % (30.8-76.2); PLATELET COUNT,PLT 405 x10(3)uL (151-488); WHITE BLOOD CELL COUNT,WBC 10.2 x10-3/uL (3.0-10.3)
[2024-02-28 07:49] LABS: RED CELL DISTRIBUTION WIDTH 16.7 % (12.3-16.5)
[2024-02-28] MEDS: Losartan 25 MG Tab PO SCH (09:30)
[2024-02-28] MEDS: Furosemide 40 MG Tab PO SCH (09:30)
[2024-02-28] MEDS: Metoprolol Succinate 100 MG Tab.ER PO SCH (09:31)
[2024-02-28] MEDS: Potassium Chloride 20 MEQ Tab.ER PO ONE (09:33)
[2024-02-28] MEDS: Warfarin 2.5 MG Tab PO ONE (15:44)
[2024-02-28] MEDS: Perflutren Lipid Microspheres 2.2 MG/2 ML SDV IVPUSH ONE (18:37)
[2024-02-29 06:43] LABS: BASOPHILS PERCENT AUTO 0.1 % (0.2-1.5); EOSINOPHILS ABSOLUTE AUTO 0.5 x10-3/uL (0.0-0.8); EOSINOPHILS PERCENT AUTO 5.1 % (0.6-8.1); HEMATOCRIT 29.8 % (34.2-48.2); HEMOGLOBIN 9.7 g/dL (11.4-15.5); LYMPHOCYTES ABSOLUTE AUTO 1.7 x10-3/uL (1.0-4.4); MEAN CORPUSCULAR HEMOGLOBIN 26.8 pg (23.9-33.9); MEAN CORPUSCULAR HGB CONC 32.5 g/dL (31.9-34.8); MEAN CORPUSCULAR VOLUME 82.5 fL (76.7-100.5); MEAN PLATELET VOLUME 8.3 fL (7.1-12.4); MONOCYTES ABSOLUTE AUTO 1.2 x10-3/uL (0.3-1.0); MONOCYTES PERCENT AUTO 12.6 % (4.4-15.7); NEUTROPHILS ABSOLUTE AUTO 6.2 x10-3/uL (1.5-6.3); NEUTROPHILS PERCENT AUTO 64.2 % (30.8-76.2); PLATELET COUNT,PLT 354 x10(3)uL (151-488); RED BLOOD CELL COUNT 3.61 x10(6)uL (3.60-5.20); RED CELL DISTRIBUTION WIDTH 16.9 % (12.3-16.5); WHITE BLOOD CELL COUNT,WBC 9.7 x10-3/uL (3.0-10.3)
[2024-02-29 06:55] LABS: INR 2.41 (1.00-1.24); PROTHROMBIN TIME 23.3 sec (9.0-11.1)
[2024-02-29 07:00] LABS: A/G RATIO 0.5; ALANINE AMINOTRANSFERASE,ALT 63 U/L (12-36); ALBUMIN 1.8 g/dL (3.2-4.6); ALKALINE PHOSPHATASE 93 IU/L (56-112); ASPARTATE AMNIOTRANSFERASE,AST 41 IU/L (5-25); BILIRUBIN TOTAL 0.4 mg/dL (0.1-1.3); BLOOD UREA NITROGEN,BUN 30 mg/dL (7-18); BUN/CREATININE RATIO 23.1 (9-20); CALCIUM 8.7 mg/dL (8.6-10.2); CARBON DIOXIDE,CO2 35 mmol/L (21-32); CHLORIDE,CL 104 mmol/L (100-110); CREATININE 1.3 mg/dL (0.55-1.02); EST CRCL DRUG DOSING (CG) 28.07 mL/min; ESTIMATED GFR 41 mL/min (>60); GLUCOSE RANDOM 80 mg/dL (80-116); POTASSIUM,K 3.8 mmol/L (3.5-5.3); PROTEIN TOTAL,TP 5.8 g/dL (6.0-8.0); SODIUM,NA 143 mmol/L (135-145)
[2024-02-29] MEDS: Warfarin 2.5 MG Tab PO ONE (17:25)
[2024-03-01 06:29] LABS: BASOPHILS ABSOLUTE AUTO 0.1 x10-3/uL (0.0-0.1); BASOPHILS PERCENT AUTO 0.7 % (0.2-1.5); EOSINOPHILS ABSOLUTE AUTO 0.5 x10-3/uL (0.0-0.8); EOSINOPHILS PERCENT AUTO 4.6 % (0.6-8.1); HEMOGLOBIN 9.3 g/dL (11.4-15.5); LYMPHOCYTES ABSOLUTE AUTO 2.2 x10-3/uL (1.0-4.4); LYMPHOCYTES PERCENT AUTO 21.5 % (18.4-52.1); MEAN CORPUSCULAR HEMOGLOBIN 25.3 pg (23.9-33.9); MEAN CORPUSCULAR HGB CONC 32.1 g/dL (31.9-34.8); MEAN CORPUSCULAR VOLUME 78.9 fL (76.7-100.5); MEAN PLATELET VOLUME 8.4 fL (7.1-12.4); MONOCYTES ABSOLUTE AUTO 1.4 x10-3/uL (0.3-1.0); MONOCYTES PERCENT AUTO 13.2 % (4.4-15.7); NEUTROPHILS ABSOLUTE AUTO 6.3 x10-3/uL (1.5-6.3); PLATELET COUNT,PLT 389 x10(3)uL (151-488); RED CELL DISTRIBUTION WIDTH 17.2 % (12.3-16.5); WHITE BLOOD CELL COUNT,WBC 10.5 x10-3/uL (3.0-10.3)
[2024-03-01 06:34] LABS: BLOOD UREA NITROGEN,BUN 28 mg/dL (7-18); BUN/CREATININE RATIO 21.5 (9-20); CALCIUM 8.9 mg/dL (8.6-10.2); CARBON DIOXIDE,CO2 33 mmol/L (21-32); CHLORIDE,CL 104 mmol/L (100-110); CREATININE 1.3 mg/dL (0.55-1.02); EST CRCL DRUG DOSING (CG) 28.07 mL/min; ESTIMATED GFR 41 mL/min (>60); GLUCOSE RANDOM 81 mg/dL (80-116); INR 2.43 (1.00-1.24); POTASSIUM,K 3.8 mmol/L (3.5-5.3); PROTHROMBIN TIME 23.5 sec (9.0-11.1); SODIUM,NA 142 mmol/L (135-145)
[2024-03-01 06:36] LABS: RED BLOOD CELL COUNT 3.68 x10(6)uL (3.60-5.20)
[2024-03-01] MEDS: Metoprolol Succinate 25 MG Tab.ER PO SCH (10:57)
[2024-03-01] MEDS: Warfarin 2.5 MG Tab PO SCH (15:47)
[2024-03-02 06:42] LABS: BASOPHILS ABSOLUTE AUTO 0.1 x10-3/uL (0.0-0.1); BASOPHILS PERCENT AUTO 1.1 % (0.2-1.5); EOSINOPHILS ABSOLUTE AUTO 0.5 x10-3/uL (0.0-0.8); EOSINOPHILS PERCENT AUTO 5.4 % (0.6-8.1); HEMATOCRIT 30.4 % (34.2-48.2); HEMOGLOBIN 9.7 g/dL (11.4-15.5); LYMPHOCYTES PERCENT AUTO 20.5 % (18.4-52.1); MEAN CORPUSCULAR HEMOGLOBIN 25.2 pg (23.9-33.9); MEAN CORPUSCULAR HGB CONC 31.9 g/dL (31.9-34.8); MEAN CORPUSCULAR VOLUME 79.1 fL (76.7-100.5); MEAN PLATELET VOLUME 8.5 fL (7.1-12.4); MONOCYTES ABSOLUTE AUTO 1.2 x10-3/uL (0.3-1.0); MONOCYTES PERCENT AUTO 12.6 % (4.4-15.7); NEUTROPHILS ABSOLUTE AUTO 5.8 x10-3/uL (1.5-6.3); NEUTROPHILS PERCENT AUTO 60.4 % (30.8-76.2); PLATELET COUNT,PLT 400 x10(3)uL (151-488); WHITE BLOOD CELL COUNT,WBC 9.6 x10-3/uL (3.0-10.3)
[2024-03-02 06:50] LABS: BLOOD UREA NITROGEN,BUN 26 mg/dL (7-18); BUN/CREATININE RATIO 21.7 (9-20); CALCIUM 8.9 mg/dL (8.6-10.2); CARBON DIOXIDE,CO2 32 mmol/L (21-32); CHLORIDE,CL 105 mmol/L (100-110); CREATININE 1.2 mg/dL (0.55-1.02); EST CRCL DRUG DOSING (CG) 30.41 mL/min; ESTIMATED GFR 45 mL/min (>60); GLUCOSE RANDOM 86 mg/dL (80-116); SODIUM,NA 144 mmol/L (135-145)
[2024-03-02 06:55] LABS: INR 2.42 (1.00-1.24); PROTHROMBIN TIME 23.4 sec (9.0-11.1)
[2024-03-02 07:03] LABS: RED BLOOD CELL COUNT 3.84 x10(6)uL (3.60-5.20)
[2024-03-02] MEDS: Metoprolol Succinate 25 MG Tab.ER PO SCH (10:05)
[2024-03-02] MEDS: Furosemide 20 MG Tab PO SCH (10:06)
[2024-03-02] MEDS: Losartan 25 MG Tab PO SCH (14:09)
[2024-03-02] MEDS: Warfarin 2.5 MG Tab PO SCH (15:44)
[2024-03-03 06:13] LABS: BASOPHILS ABSOLUTE AUTO 0.1 x10-3/uL (0.0-0.1); BASOPHILS PERCENT AUTO 0.9 % (0.2-1.5); EOSINOPHILS ABSOLUTE AUTO 0.5 x10-3/uL (0.0-0.8); EOSINOPHILS PERCENT AUTO 4.8 % (0.6-8.1); HEMOGLOBIN 9.3 g/dL (11.4-15.5); LYMPHOCYTES ABSOLUTE AUTO 2.5 x10-3/uL (1.0-4.4); LYMPHOCYTES PERCENT AUTO 26.6 % (18.4-52.1); MEAN CORPUSCULAR HEMOGLOBIN 25.5 pg (23.9-33.9); MEAN CORPUSCULAR HGB CONC 32.1 g/dL (31.9-34.8); MEAN CORPUSCULAR VOLUME 79.4 fL (76.7-100.5); MEAN PLATELET VOLUME 8.5 fL (7.1-12.4); MONOCYTES ABSOLUTE AUTO 1.2 x10-3/uL (0.3-1.0); MONOCYTES PERCENT AUTO 12.8 % (4.4-15.7); NEUTROPHILS ABSOLUTE AUTO 5.2 x10-3/uL (1.5-6.3); NEUTROPHILS PERCENT AUTO 54.9 % (30.8-76.2); PLATELET COUNT,PLT 396 x10(3)uL (151-488); RED CELL DISTRIBUTION WIDTH 16.9 % (12.3-16.5); WHITE BLOOD CELL COUNT,WBC 9.5 x10-3/uL (3.0-10.3)
[2024-03-03 06:45] LABS: INR 2.58 (1.00-1.24); PROTHROMBIN TIME 24.9 sec (9.0-11.1)
[2024-03-03 07:15] LABS: BLOOD UREA NITROGEN,BUN 31 mg/dL (7-18); BUN/CREATININE RATIO 23.8 (9-20); CALCIUM 8.8 mg/dL (8.6-10.2); CARBON DIOXIDE,CO2 33 mmol/L (21-32); CHLORIDE,CL 107 mmol/L (100-110); CREATININE 1.3 mg/dL (0.55-1.02); EST CRCL DRUG DOSING (CG) 28.07 mL/min; ESTIMATED GFR 41 mL/min (>60); GLUCOSE RANDOM 80 mg/dL (80-116); POTASSIUM,K 4.1 mmol/L (3.5-5.3); SODIUM,NA 145 mmol/L (135-145)
[2024-03-03 07:22] LABS: RED BLOOD CELL COUNT 3.65 x10(6)uL (3.60-5.20)
[2024-03-03] MEDS: Tuberculin, PPD 5 Units/0.1 ML 1 ML MDV IDERM ONE (09:05)
[2024-03-03 12:00] VITALS: BP 104/48; PULSE 66
== END 2024-03-03 13:00 | DRG 291 ==
LOC: FB.ED 12:42 → FB.MS 14:39
PROVIDERS: ADMIT Family Medicine; ATTEND Internal Medicine
DX: I11.0 Hypertensive heart disease with heart failure (principal); I50.9 Heart failure, unspecified; M79.661 Pain in right lower leg; M79.662 Pain in left lower leg; I13.0 Hypertensive heart and chronic kidney disease with heart failure and stage 1 through stage 4 chronic kidney disease, or unspecified chronic kidney disease; I50.23 Acute on chronic systolic (congestive) heart failure; L97.901 Non-pressure chronic ulcer of unspecified part of unspecified lower leg limited to breakdown of skin; H54.7 Unspecified visual loss; E78.00 Pure hypercholesterolemia, unspecified; M19.90 Unspecified osteoarthritis, unspecified site; Z68.42 Body mass index [BMI] 45.0-49.9, adult; E66.9 Obesity, unspecified; Z96.659 Presence of unspecified artificial knee joint; I87.2 Venous insufficiency (chronic) (peripheral); I48.0 Paroxysmal atrial fibrillation; I27.20 Pulmonary hypertension, unspecified; D63.1 Anemia in chronic kidney disease; N18.32 Chronic kidney disease, stage 3b; L30.4 Erythema intertrigo; E88.09 Other disorders of plasma-protein metabolism, not elsewhere classified; R79.89 Other specified abnormal findings of blood chemistry; I95.9 Hypotension, unspecified; Z86.73 Personal history of transient ischemic attack (TIA), and cerebral infarction without residual deficits; Z79.82 Long term (current) use of aspirin; Z79.01 Long term (current) use of anticoagulants; Z79.02 Long term (current) use of antithrombotics/antiplatelets; Z98.49 Cataract extraction status, unspecified eye; Z87.81 Personal history of (healed) traumatic fracture; Z98.890 Other specified postprocedural states; Z90.49 Acquired absence of other specified parts of digestive tract; Z90.710 Acquired absence of both cervix and uterus; Z79.1 Long term (current) use of non-steroidal anti-inflammatories (NSAID); Z79.899 Other long term (current) drug therapy
CPT/HCPCS: 71045; 80053; 83605; 83880; 84484; 85025; 85379; 85610; 86140; 87040; 93005; 93010; 96374; 99284; 99285; J1940; 36415; 80048; 81003; 82570; 86580; 93306; 93970; 94150; 97161-GP; 97165-GO; 97530-GO; 97530-GP; 97542-GO; 99222; 99231; 99232; 99238; A9270-GY; C8929; P9045

== ENCOUNTER 2024-03-25 09:50 | Inpatient (IN) | payer MEDICARE, BC ==
[2024-03-25 10:55] LABS: BASOPHILS ABSOLUTE AUTO 0.1 x10-3/uL (0.0-0.1); BASOPHILS PERCENT AUTO 0.8 % (0.2-1.5); EOSINOPHILS ABSOLUTE AUTO 0.2 x10-3/uL (0.0-0.8); EOSINOPHILS PERCENT AUTO 1.2 % (0.6-8.1); HEMATOCRIT 32.1 % (34.2-48.2); HEMOGLOBIN 10.2 g/dL (11.4-15.5); LYMPHOCYTES ABSOLUTE AUTO 1.4 x10-3/uL (1.0-4.4); LYMPHOCYTES PERCENT AUTO 9.5 % (18.4-52.1); MEAN CORPUSCULAR HEMOGLOBIN 24.8 pg (23.9-33.9); MEAN CORPUSCULAR HGB CONC 31.7 g/dL (31.9-34.8); MEAN PLATELET VOLUME 8.4 fL (7.1-12.4); MONOCYTES ABSOLUTE AUTO 1.2 x10-3/uL (0.3-1.0); MONOCYTES PERCENT AUTO 8.3 % (4.4-15.7); NEUTROPHILS ABSOLUTE AUTO 11.7 x10-3/uL (1.5-6.3); NEUTROPHILS PERCENT AUTO 80.2 % (30.8-76.2); PLATELET COUNT,PLT 252 x10(3)uL (151-488); RED BLOOD CELL COUNT 4.11 x10(6)uL (3.60-5.20); RED CELL DISTRIBUTION WIDTH 18.4 % (12.3-16.5); WHITE BLOOD CELL COUNT,WBC 14.5 x10-3/uL (3.0-10.3)
[2024-03-25 11:03] LABS: BLOOD UREA NITROGEN,BUN 30 mg/dL (7-18); BUN/CREATININE RATIO 21.4 (9-20); CARBON DIOXIDE,CO2 30 mmol/L (21-32); CHLORIDE,CL 100 mmol/L (100-110); CREATININE 1.4 mg/dL (0.55-1.02); EST CRCL DRUG DOSING (CG) 28.36 mL/min; ESTIMATED GFR 38 mL/min (>60); POTASSIUM,K 3.5 mmol/L (3.5-5.3); SODIUM,NA 137 mmol/L (135-145)
[2024-03-25 11:05] LABS: INR 1.12 (1.00-1.24); PROTHROMBIN TIME 11.5 sec (9.0-11.1)
[2024-03-25 11:08] LABS: A/G RATIO 0.6; ALBUMIN 2.5 g/dL (3.2-4.6); ALKALINE PHOSPHATASE 91 IU/L (56-112)
[2024-03-25 11:16] LABS: TROPONIN I 20.4 pg/mL (4.0-60.3)
[2024-03-25 11:23] LABS: C-REACTIVE PROTEIN 12.3 mg/dL (<0.50)
[2024-03-25 11:28] LABS: BILIRUBIN,URINE NEGATIVE (NEGATIVE); GLUCOSE,URINE 250 mg/dL (NORMAL); KETONES,URINE NEGATIVE (NEGATIVE); LEUKOCYTE ESTERASE,URINE NEGATIVE (NEGATIVE); NITRITE,URINE NEGATIVE (NEGATIVE); OCCULT BLOOD,URINE NEGATIVE (NEGATIVE); PROTEIN,URINE NEGATIVE (NEGATIVE); UROBILINOGEN,URINE NORMAL (NEGATIVE)
[2024-03-25 11:31] LABS: ALANINE AMINOTRANSFERASE,ALT 20 U/L (12-36); ASPARTATE AMNIOTRANSFERASE,AST 18 IU/L (5-25); BILIRUBIN TOTAL 0.8 mg/dL (0.1-1.3); CALCIUM 9.3 mg/dL (8.6-10.2); GLUCOSE RANDOM 99 mg/dL (80-116)
[2024-03-25 11:38] LABS: APPEARANCE,URINE CLEAR (CLEAR); BACTERIA,URINE RARE (NS); COLOR,URINE YELLOW (YELLOW); HYALINE CASTS,URINE FEW (NS); RBC,URINE 0-5 (0-5); SQUAMOUS EPITHELIAL CELLS,UR RARE (NS,R,O); WBC,URINE 0-5 (0-5)
[2024-03-25] MEDS: Sodium Chloride 0.9% 10 ML Syringe FLUSH PRN (13:22)
[2024-03-25] MEDS: Furosemide 20 MG/2 ML VIAL IVPUSH ONE (13:22)
[2024-03-25] MEDS ORDERED: Warfarin Sliding Scale PO SCH (14:15)
[2024-03-25] MEDS: Warfarin 5 MG Tab PO ONE (15:22)
[2024-03-25] MEDS: Acetaminophen 325 MG Tab PO PRN (15:23)
[2024-03-25] MEDS ORDERED: Ampicillin/Sulbactam Na 1.5 GM in Sodium Chloride 0.9% 50 ML IV SCH (16:30)
[2024-03-25] MEDS ORDERED: Ampicillin/Sulbactam Na 1.5 GM in Sodium Chloride 0.9% 50 ML IV ONE (17:00)
[2024-03-25] MEDS: Ampicillin/Sulbactam Na 3 GM in Sodium Chloride 0.9% 100 ML IV SCH (17:54)
[2024-03-25] MEDS ORDERED: Ampicillin/Sulbactam Na 3 GM in Sodium Chloride 0.9% 100 ML IV SCH (18:00)
[2024-03-25] MEDS ORDERED: Bisacodyl 10 MG Supp RECTAL PRN (19:50)
[2024-03-25] MEDS ORDERED: Loperamide 2 MG Cap PO PRN (19:50)
[2024-03-25] MEDS ORDERED: Magnesium Hydroxide 400 MG/5 ML Susp 30 ML Cup PO PRN (19:50)
[2024-03-25] MEDS ORDERED: Acetaminophen 325 MG Tab PO PRN (19:50)
[2024-03-25] MEDS ORDERED: guaiFENesin 100 MG/5 ML Soln 5 ML UD Cup PO PRN (19:50)
[2024-03-25] MEDS ORDERED: Carbamide Peroxide 6.5% Otic Soln 15 ML Bottle EARBOTH PRN (19:50)
[2024-03-25] MEDS ORDERED: Nitroglycerin 0.4 MG Tab.SL SL PRN (19:50)
[2024-03-25] MEDS ORDERED: Warfarin 5 MG Tab PO SCH (19:50)
[2024-03-26 07:11] LABS: BLOOD UREA NITROGEN,BUN 33 mg/dL (7-18); BUN/CREATININE RATIO 23.6 (9-20); CALCIUM 8.4 mg/dL (8.6-10.2); CARBON DIOXIDE,CO2 30 mmol/L (21-32); CHLORIDE,CL 105 mmol/L (100-110); CREATININE 1.4 mg/dL (0.55-1.02); EST CRCL DRUG DOSING (CG) 26.07 mL/min; ESTIMATED GFR 38 mL/min (>60); GLUCOSE RANDOM 78 mg/dL (80-116); POTASSIUM,K 3.3 mmol/L (3.5-5.3); SODIUM,NA 141 mmol/L (135-145)
[2024-03-26 07:12] LABS: BASOPHILS PERCENT AUTO 0.4 % (0.2-1.5); EOSINOPHILS ABSOLUTE AUTO 0.3 x10-3/uL (0.0-0.8); HEMATOCRIT 28.3 % (34.2-48.2); HEMOGLOBIN 9.2 g/dL (11.4-15.5); LYMPHOCYTES ABSOLUTE AUTO 1.8 x10-3/uL (1.0-4.4); LYMPHOCYTES PERCENT AUTO 19.3 % (18.4-52.1); MEAN CORPUSCULAR HEMOGLOBIN 25.2 pg (23.9-33.9); MEAN CORPUSCULAR HGB CONC 32.4 g/dL (31.9-34.8); MEAN CORPUSCULAR VOLUME 77.6 fL (76.7-100.5); MEAN PLATELET VOLUME 8.8 fL (7.1-12.4); MONOCYTES PERCENT AUTO 10.4 % (4.4-15.7); NEUTROPHILS ABSOLUTE AUTO 6.3 x10-3/uL (1.5-6.3); NEUTROPHILS PERCENT AUTO 66.9 % (30.8-76.2); PLATELET COUNT,PLT 227 x10(3)uL (151-488); RED CELL DISTRIBUTION WIDTH 19.1 % (12.3-16.5); WHITE BLOOD CELL COUNT,WBC 9.4 x10-3/uL (3.0-10.3)
[2024-03-26 07:25] LABS: INR 1.16 (1.00-1.24)
[2024-03-26] MEDS ORDERED: Aluminum Hydroxide/Magnesium Hydroxide Susp 30 ML Cup PO PRN (07:29)
[2024-03-26 08:04] LABS: RED BLOOD CELL COUNT 3.66 x10(6)uL (3.60-5.20)
[2024-03-26] MEDS: Ferrous Sulfate 325 MG Tab PO SCH (08:16)
[2024-03-26] MEDS: Cyanocobalamin (Vitamin B12) 1,000 MCG Tab PO SCH (08:16)
[2024-03-26] MEDS: Empagliflozin 10 MG Tab PO SCH (08:16)
[2024-03-26] MEDS: Sodium Bicarbonate 650 MG Tab PO SCH (08:16)
[2024-03-26] MEDS: Folic Acid 1 MG Tab PO SCH (08:16)
[2024-03-26] MEDS: Beta-Carotene (Vitamin A) w/Vitamin C & E plus Minerals Tab PO SCH (08:16)
[2024-03-26] MEDS: Aspirin 81 MG Tab.EC PO SCH (08:16)
[2024-03-26] MEDS: Allopurinol 100 MG Tab PO SCH (08:17)
[2024-03-26] MEDS: atorvaSTATin 10 MG Tab PO SCH (08:17)
[2024-03-26] MEDS: Furosemide 40 MG/4 ML VIAL IVPUSH SCH (08:23)
[2024-03-26] MEDS: Warfarin 5 MG Tab PO ONE (18:01)
[2024-03-27 06:27] LABS: BASOPHILS PERCENT AUTO 0.4 % (0.2-1.5); EOSINOPHILS ABSOLUTE AUTO 0.2 x10-3/uL (0.0-0.8); EOSINOPHILS PERCENT AUTO 1.9 % (0.6-8.1); HEMATOCRIT 27.7 % (34.2-48.2); LYMPHOCYTES ABSOLUTE AUTO 2.4 x10-3/uL (1.0-4.4); LYMPHOCYTES PERCENT AUTO 22.6 % (18.4-52.1); MEAN CORPUSCULAR HEMOGLOBIN 25.1 pg (23.9-33.9); MEAN CORPUSCULAR HGB CONC 32.3 g/dL (31.9-34.8); MEAN CORPUSCULAR VOLUME 77.5 fL (76.7-100.5); MEAN PLATELET VOLUME 8.6 fL (7.1-12.4); MONOCYTES ABSOLUTE AUTO 1.3 x10-3/uL (0.3-1.0); MONOCYTES PERCENT AUTO 12.5 % (4.4-15.7); NEUTROPHILS ABSOLUTE AUTO 6.5 x10-3/uL (1.5-6.3); NEUTROPHILS PERCENT AUTO 62.6 % (30.8-76.2); PLATELET COUNT,PLT 213 x10(3)uL (151-488); RED CELL DISTRIBUTION WIDTH 18.8 % (12.3-16.5); WHITE BLOOD CELL COUNT,WBC 10.4 x10-3/uL (3.0-10.3)
[2024-03-27 06:32] LABS: BLOOD UREA NITROGEN,BUN 30 mg/dL (7-18); BUN/CREATININE RATIO 23.1 (9-20); CALCIUM 8.3 mg/dL (8.6-10.2); CARBON DIOXIDE,CO2 31 mmol/L (21-32); CHLORIDE,CL 104 mmol/L (100-110); CREATININE 1.3 mg/dL (0.55-1.02); EST CRCL DRUG DOSING (CG) 28.07 mL/min; ESTIMATED GFR 41 mL/min (>60); GLUCOSE RANDOM 83 mg/dL (80-116); POTASSIUM,K 3.3 mmol/L (3.5-5.3); SODIUM,NA 140 mmol/L (135-145)
[2024-03-27 06:34] LABS: INR 1.21 (1.00-1.24); PROTHROMBIN TIME 12.4 sec (9.0-11.1)
[2024-03-27 06:38] LABS: RED BLOOD CELL COUNT 3.57 x10(6)uL (3.60-5.20)
[2024-03-27 06:49] LABS: C-REACTIVE PROTEIN 13.71 mg/dL (<0.50)
[2024-03-27] MEDS: Warfarin 5 MG Tab PO ONE (16:26)
[2024-03-28 06:33] LABS: BASOPHILS ABSOLUTE AUTO 0.1 x10-3/uL (0.0-0.1); BASOPHILS PERCENT AUTO 0.6 % (0.2-1.5); EOSINOPHILS ABSOLUTE AUTO 0.3 x10-3/uL (0.0-0.8); EOSINOPHILS PERCENT AUTO 3.6 % (0.6-8.1); HEMATOCRIT 28.2 % (34.2-48.2); HEMOGLOBIN 9.2 g/dL (11.4-15.5); MEAN CORPUSCULAR HEMOGLOBIN 25.3 pg (23.9-33.9); MEAN CORPUSCULAR HGB CONC 32.6 g/dL (31.9-34.8); MEAN CORPUSCULAR VOLUME 77.4 fL (76.7-100.5); MEAN PLATELET VOLUME 8.5 fL (7.1-12.4); MONOCYTES ABSOLUTE AUTO 0.9 x10-3/uL (0.3-1.0); MONOCYTES PERCENT AUTO 9.4 % (4.4-15.7); NEUTROPHILS ABSOLUTE AUTO 6.5 x10-3/uL (1.5-6.3); NEUTROPHILS PERCENT AUTO 66.4 % (30.8-76.2); PLATELET COUNT,PLT 244 x10(3)uL (151-488); RED CELL DISTRIBUTION WIDTH 18.6 % (12.3-16.5); WHITE BLOOD CELL COUNT,WBC 9.7 x10-3/uL (3.0-10.3)
[2024-03-28 06:38] LABS: BLOOD UREA NITROGEN,BUN 27 mg/dL (7-18); BUN/CREATININE RATIO 22.5 (9-20); CALCIUM 8.7 mg/dL (8.6-10.2); CARBON DIOXIDE,CO2 32 mmol/L (21-32); CHLORIDE,CL 101 mmol/L (100-110); CREATININE 1.2 mg/dL (0.55-1.02); EST CRCL DRUG DOSING (CG) 30.41 mL/min; ESTIMATED GFR 45 mL/min (>60); GLUCOSE RANDOM 76 mg/dL (80-116); POTASSIUM,K 3.2 mmol/L (3.5-5.3); SODIUM,NA 140 mmol/L (135-145)
[2024-03-28 06:40] LABS: INR 1.5 (1.00-1.24); PROTHROMBIN TIME 15.1 sec (9.0-11.1)
[2024-03-28 06:54] LABS: RED BLOOD CELL COUNT 3.64 x10(6)uL (3.60-5.20)
[2024-03-28 08:56] LABS: BILIRUBIN,URINE NEGATIVE (NEGATIVE); GLUCOSE,URINE 250 mg/dL (NORMAL); KETONES,URINE NEGATIVE (NEGATIVE); LEUKOCYTE ESTERASE,URINE NEGATIVE (NEGATIVE); NITRITE,URINE NEGATIVE (NEGATIVE); OCCULT BLOOD,URINE NEGATIVE (NEGATIVE); PROTEIN,URINE NEGATIVE (NEGATIVE); UROBILINOGEN,URINE NORMAL (NEGATIVE)
[2024-03-28 09:02] LABS: APPEARANCE,URINE SLIGHTLY CLOUDY (CLEAR); BACTERIA,URINE FEW (NS); COLOR,URINE YELLOW (YELLOW); SQUAMOUS EPITHELIAL CELLS,UR FEW (NS,R,O); WBC,URINE 0-5 (0-5)
[2024-03-28] MEDS: Potassium Chloride 20 MEQ Tab.ER PO ONE (09:33)
[2024-03-28] MEDS: Warfarin 5 MG Tab PO ONE (17:02)
[2024-03-29 06:35] LABS: BASOPHILS ABSOLUTE AUTO 0.1 x10-3/uL (0.0-0.1); BASOPHILS PERCENT AUTO 0.8 % (0.2-1.5); EOSINOPHILS ABSOLUTE AUTO 0.4 x10-3/uL (0.0-0.8); EOSINOPHILS PERCENT AUTO 5.1 % (0.6-8.1); HEMATOCRIT 27.2 % (34.2-48.2); LYMPHOCYTES ABSOLUTE AUTO 2.1 x10-3/uL (1.0-4.4); LYMPHOCYTES PERCENT AUTO 25.2 % (18.4-52.1); MEAN CORPUSCULAR HEMOGLOBIN 25.5 pg (23.9-33.9); MEAN CORPUSCULAR HGB CONC 33.2 g/dL (31.9-34.8); MEAN CORPUSCULAR VOLUME 76.8 fL (76.7-100.5); MEAN PLATELET VOLUME 8.5 fL (7.1-12.4); MONOCYTES ABSOLUTE AUTO 0.8 x10-3/uL (0.3-1.0); MONOCYTES PERCENT AUTO 9.5 % (4.4-15.7); NEUTROPHILS PERCENT AUTO 59.4 % (30.8-76.2); PLATELET COUNT,PLT 245 x10(3)uL (151-488); RED CELL DISTRIBUTION WIDTH 18.7 % (12.3-16.5); WHITE BLOOD CELL COUNT,WBC 8.4 x10-3/uL (3.0-10.3)
[2024-03-29 06:44] LABS: INR 1.75 (1.00-1.24); PROTHROMBIN TIME 17.4 sec (9.0-11.1)
[2024-03-29 07:07] LABS: RED BLOOD CELL COUNT 3.55 x10(6)uL (3.60-5.20)
[2024-03-29 07:43] LABS: BLOOD UREA NITROGEN,BUN 24 mg/dL (7-18); CALCIUM 8.5 mg/dL (8.6-10.2); CARBON DIOXIDE,CO2 32 mmol/L (21-32); CHLORIDE,CL 104 mmol/L (100-110); CREATININE 1.2 mg/dL (0.55-1.02); EST CRCL DRUG DOSING (CG) 30.41 mL/min; ESTIMATED GFR 45 mL/min (>60); GLUCOSE RANDOM 76 mg/dL (80-116); MAGNESIUM 2.1 mg/dL (1.8-2.5); POTASSIUM,K 3.5 mmol/L (3.5-5.3); SODIUM,NA 141 mmol/L (135-145)
[2024-03-29] MEDS: Warfarin 5 MG Tab PO ONE (15:45)
[2024-03-29] MEDS: Furosemide 40 MG/4 ML VIAL IVPUSH ONE (17:31)
[2024-03-30] MEDS: Furosemide 40 MG/4 ML VIAL IVPUSH SCH (05:48)
[2024-03-30 06:46] LABS: BASOPHILS ABSOLUTE AUTO 0.1 x10-3/uL (0.0-0.1); EOSINOPHILS ABSOLUTE AUTO 0.5 x10-3/uL (0.0-0.8); EOSINOPHILS PERCENT AUTO 5.5 % (0.6-8.1); HEMATOCRIT 30.1 % (34.2-48.2); HEMOGLOBIN 9.8 g/dL (11.4-15.5); LYMPHOCYTES ABSOLUTE AUTO 2.6 x10-3/uL (1.0-4.4); LYMPHOCYTES PERCENT AUTO 27.3 % (18.4-52.1); MEAN CORPUSCULAR HEMOGLOBIN 25.1 pg (23.9-33.9); MEAN CORPUSCULAR HGB CONC 32.5 g/dL (31.9-34.8); MEAN CORPUSCULAR VOLUME 77.1 fL (76.7-100.5); MEAN PLATELET VOLUME 8.3 fL (7.1-12.4); MONOCYTES ABSOLUTE AUTO 0.9 x10-3/uL (0.3-1.0); MONOCYTES PERCENT AUTO 9.4 % (4.4-15.7); NEUTROPHILS ABSOLUTE AUTO 5.4 x10-3/uL (1.5-6.3); NEUTROPHILS PERCENT AUTO 56.8 % (30.8-76.2); PLATELET COUNT,PLT 304 x10(3)uL (151-488); RED CELL DISTRIBUTION WIDTH 18.7 % (12.3-16.5); WHITE BLOOD CELL COUNT,WBC 9.5 x10-3/uL (3.0-10.3)
[2024-03-30 06:49] LABS: BLOOD UREA NITROGEN,BUN 26 mg/dL (7-18); BUN/CREATININE RATIO 18.6 (9-20); CARBON DIOXIDE,CO2 33 mmol/L (21-32); CHLORIDE,CL 101 mmol/L (100-110); CREATININE 1.4 mg/dL (0.55-1.02); EST CRCL DRUG DOSING (CG) 26.07 mL/min; ESTIMATED GFR 38 mL/min (>60); GLUCOSE RANDOM 78 mg/dL (80-116); POTASSIUM,K 3.5 mmol/L (3.5-5.3); SODIUM,NA 139 mmol/L (135-145)
[2024-03-30 06:52] LABS: INR 2.14 (1.00-1.24); PROTHROMBIN TIME 20.9 sec (9.0-11.1)
[2024-03-30] MEDS: Warfarin 2.5 MG Tab PO ONE (16:24)
[2024-03-31] MEDS: Furosemide 40 MG/4 ML VIAL IVPUSH SCH (05:51)
[2024-03-31] MEDS: Amoxicillin/Clavulanate K 500-125 MG Tab PO SCH (05:51)
[2024-03-31 06:27] LABS: BASOPHILS ABSOLUTE AUTO 0.1 x10-3/uL (0.0-0.1); BASOPHILS PERCENT AUTO 0.7 % (0.2-1.5); EOSINOPHILS ABSOLUTE AUTO 0.5 x10-3/uL (0.0-0.8); EOSINOPHILS PERCENT AUTO 5.7 % (0.6-8.1); HEMATOCRIT 31.2 % (34.2-48.2); HEMOGLOBIN 10.3 g/dL (11.4-15.5); LYMPHOCYTES ABSOLUTE AUTO 2.3 x10-3/uL (1.0-4.4); LYMPHOCYTES PERCENT AUTO 27.3 % (18.4-52.1); MEAN CORPUSCULAR HEMOGLOBIN 25.3 pg (23.9-33.9); MEAN CORPUSCULAR HGB CONC 32.8 g/dL (31.9-34.8); MEAN CORPUSCULAR VOLUME 76.9 fL (76.7-100.5); MEAN PLATELET VOLUME 8.3 fL (7.1-12.4); MONOCYTES ABSOLUTE AUTO 0.9 x10-3/uL (0.3-1.0); MONOCYTES PERCENT AUTO 10.4 % (4.4-15.7); NEUTROPHILS ABSOLUTE AUTO 4.7 x10-3/uL (1.5-6.3); NEUTROPHILS PERCENT AUTO 55.9 % (30.8-76.2); PLATELET COUNT,PLT 327 x10(3)uL (151-488); RED CELL DISTRIBUTION WIDTH 18.5 % (12.3-16.5); WHITE BLOOD CELL COUNT,WBC 8.5 x10-3/uL (3.0-10.3)
[2024-03-31 06:29] LABS: BLOOD UREA NITROGEN,BUN 27 mg/dL (7-18); BUN/CREATININE RATIO 19.3 (9-20); CALCIUM 8.8 mg/dL (8.6-10.2); CARBON DIOXIDE,CO2 34 mmol/L (21-32); CHLORIDE,CL 99 mmol/L (100-110); CREATININE 1.4 mg/dL (0.55-1.02); EST CRCL DRUG DOSING (CG) 26.07 mL/min; ESTIMATED GFR 38 mL/min (>60); GLUCOSE RANDOM 87 mg/dL (80-116); POTASSIUM,K 3.4 mmol/L (3.5-5.3); SODIUM,NA 137 mmol/L (135-145)
[2024-03-31 06:33] LABS: INR 2.19 (1.00-1.24); PROTHROMBIN TIME 21.3 sec (9.0-11.1)
[2024-03-31 06:42] LABS: RED BLOOD CELL COUNT 4.06 x10(6)uL (3.60-5.20)
[2024-03-31] MEDS: Potassium Chloride 20 MEQ Tab.ER PO STA (09:36)
[2024-03-31] MEDS: Tuberculin, PPD 5 Units/0.1 ML 1 ML MDV IDERM ONE (09:50)
[2024-03-31 10:49] VITALS: BP 137/76; PULSE 118
== END 2024-03-31 10:45 | DRG 291 ==
LOC: FB.ED 09:50 → FB.MS 13:02
PROVIDERS: ADMIT Family Medicine; ATTEND Internal Medicine
DX: R53.1 Weakness (principal); R60.1 Generalized edema; I11.0 Hypertensive heart disease with heart failure; I50.9 Heart failure, unspecified; I13.0 Hypertensive heart and chronic kidney disease with heart failure and stage 1 through stage 4 chronic kidney disease, or unspecified chronic kidney disease; I50.23 Acute on chronic systolic (congestive) heart failure; L03.116 Cellulitis of left lower limb; R29.6 Repeated falls; E66.9 Obesity, unspecified; H54.7 Unspecified visual loss; E78.00 Pure hypercholesterolemia, unspecified; M19.90 Unspecified osteoarthritis, unspecified site; Z68.34 Body mass index [BMI] 34.0-34.9, adult; Z96.659 Presence of unspecified artificial knee joint; F15.90 Other stimulant use, unspecified, uncomplicated; E66.01 Morbid (severe) obesity due to excess calories; D63.1 Anemia in chronic kidney disease; N18.31 Chronic kidney disease, stage 3a; I27.20 Pulmonary hypertension, unspecified; I87.2 Venous insufficiency (chronic) (peripheral); I48.0 Paroxysmal atrial fibrillation; E87.6 Hypokalemia; Z79.01 Long term (current) use of anticoagulants; Z68.39 Body mass index [BMI] 39.0-39.9, adult; Z86.16 Personal history of COVID-19; Z79.82 Long term (current) use of aspirin; Z79.1 Long term (current) use of non-steroidal anti-inflammatories (NSAID); Z79.899 Other long term (current) drug therapy; Z79.02 Long term (current) use of antithrombotics/antiplatelets; Z98.49 Cataract extraction status, unspecified eye; Z90.49 Acquired absence of other specified parts of digestive tract; Z90.710 Acquired absence of both cervix and uterus; Z98.890 Other specified postprocedural states; Z86.73 Personal history of transient ischemic attack (TIA), and cerebral infarction without residual deficits
CPT/HCPCS: 36415; 51702; 71045; 73552-LT; 73560-LT; 73590-LT; 80048; 80053; 81001; 82947; 83605; 83735; 83880; 84484; 85025; 85610; 86140; 86580; 87086; 93005; 97161-GP; 97165-GO; 97530-GP; 99222; 99231; 99232; 99238; 99285; A9270-GY; J0295; J1940

== ENCOUNTER 2024-05-10 07:54 | Emergency (ER) | payer MEDICARE, BC ==
[2024-05-10] MEDS ORDERED: Ondansetron 4 MG Tab.DIS PO ONE (07:55)
[2024-05-10 08:41] LABS: BASOPHILS ABSOLUTE AUTO 0.1 x10-3/uL (0.0-0.1); BASOPHILS PERCENT AUTO 0.7 % (0.2-1.5); EOSINOPHILS ABSOLUTE AUTO 0.1 x10-3/uL (0.0-0.8); EOSINOPHILS PERCENT AUTO 0.6 % (0.6-8.1); HEMATOCRIT 28.9 % (34.2-48.2); HEMOGLOBIN 9.3 g/dL (11.4-15.5); LYMPHOCYTES ABSOLUTE AUTO 1.8 x10-3/uL (1.0-4.4); LYMPHOCYTES PERCENT AUTO 18.1 % (18.4-52.1); MEAN CORPUSCULAR HEMOGLOBIN 25.5 pg (23.9-33.9); MEAN CORPUSCULAR HGB CONC 32.2 g/dL (31.9-34.8); MEAN CORPUSCULAR VOLUME 79.1 fL (76.7-100.5); MEAN PLATELET VOLUME 9.5 fL (7.1-12.4); MONOCYTES ABSOLUTE AUTO 0.8 x10-3/uL (0.3-1.0); MONOCYTES PERCENT AUTO 8.4 % (4.4-15.7); NEUTROPHILS PERCENT AUTO 72.2 % (30.8-76.2); PLATELET COUNT,PLT 293 x10(3)uL (151-488); RED BLOOD CELL COUNT 3.65 x10(6)uL (3.60-5.20); RED CELL DISTRIBUTION WIDTH 22.2 % (12.3-16.5); WHITE BLOOD CELL COUNT,WBC 9.7 x10-3/uL (3.0-10.3)
[2024-05-10 08:45] LABS: BLOOD UREA NITROGEN,BUN 17 mg/dL (7-18); BUN/CREATININE RATIO 13.1 (9-20); CALCIUM 8.7 mg/dL (8.6-10.2); CARBON DIOXIDE,CO2 29 mmol/L (21-32); CHLORIDE,CL 107 mmol/L (100-110); CREATININE 1.3 mg/dL (0.55-1.02); EST CRCL DRUG DOSING (CG) 28.07 mL/min; ESTIMATED GFR 41 mL/min (>60); GLUCOSE RANDOM 101 mg/dL (80-116); POTASSIUM,K 2.9 mmol/L (3.5-5.3); SODIUM,NA 146 mmol/L (135-145)
[2024-05-10 08:51] LABS: A/G RATIO 0.6; ALANINE AMINOTRANSFERASE,ALT 19 U/L (12-36); ALBUMIN 2.6 g/dL (3.2-4.6); ALKALINE PHOSPHATASE 100 IU/L (56-112); ASPARTATE AMNIOTRANSFERASE,AST 27 IU/L (5-25); BILIRUBIN TOTAL 0.4 mg/dL (0.1-1.3); PROTEIN TOTAL,TP 6.8 g/dL (6.0-8.0)
[2024-05-10 08:55] LABS: LACTIC ACID 1.8 mmol/L (0.4-2.0)
[2024-05-10] MEDS: Acetaminophen 500 MG Tab PO ONE (08:55)
[2024-05-10] MEDS: Sodium Chloride 0.9% 1,000 ML IV ONE (08:56)
[2024-05-10 08:58] LABS: INR 3.82 (1.00-1.24)
[2024-05-10 09:01] LABS: PROTHROMBIN TIME 35.6 sec (9.0-11.1)
[2024-05-10] MEDS: Ondansetron 4 MG/2 ML SDV IVPUSH ONE (10:35)
[2024-05-10] MEDS: Furosemide 40 MG/4 ML VIAL IVPUSH ONE (10:35)
[2024-05-10] MEDS: Potassium Chloride 20 MEQ in Premix Bag 1 BAG IV ONE (10:36)
[2024-05-10] MEDS: Potassium Chloride 20 MEQ Tab.ER PO ONE (11:12)
[2024-05-10 13:03] VITALS: BP 105/76; PULSE 98
[2024-05-10] MEDS ORDERED: Saccharomyces Boulardii (Probiotic) 250 MG Cap PO SCH (21:00)
== END 2024-05-10 13:05 ==
LOC: FB.ED 07:54
DX: I13.0 Hypertensive heart and chronic kidney disease with heart failure and stage 1 through stage 4 chronic kidney disease, or unspecified chronic kidney disease (principal); I50.9 Heart failure, unspecified; N18.32 Chronic kidney disease, stage 3b; D63.1 Anemia in chronic kidney disease; E87.6 Hypokalemia; E66.9 Obesity, unspecified; Z90.49 Acquired absence of other specified parts of digestive tract; Z90.710 Acquired absence of both cervix and uterus; Z79.899 Other long term (current) drug therapy; Z79.82 Long term (current) use of aspirin; Z79.1 Long term (current) use of non-steroidal anti-inflammatories (NSAID); Z79.2 Long term (current) use of antibiotics; Z68.35 Body mass index [BMI] 35.0-35.9, adult
CPT/HCPCS: 36415; 71045; 80053; 83605; 83690; 83880; 85025; 85610; 96365; 96366; 96375; 99285; A9270; J1642; J1940; J2405; J3480; J7030; Q0162

== ENCOUNTER 2024-08-13 09:08 | Emergency (ER) | payer MEDICARE, BC ==
[2024-08-13] MEDS ORDERED: Lidocaine 2% with EPINEPHrine 1:100,000 20 ML MDV INFILT ONE (09:09)
[2024-08-13 09:44] VITALS: BP 124/55; PULSE 78
== END 2024-08-13 09:35 | disposition home or self-care (01) ==
LOC: FB.ED 09:08
DX: S81.812A Laceration without foreign body, left lower leg, initial encounter (principal); Z79.899 Other long term (current) drug therapy; Z79.82 Long term (current) use of aspirin; W26.9XXA Contact with unspecified sharp object(s), initial encounter
CPT/HCPCS: 12002; 99282; 99283

== ENCOUNTER 2024-10-16 11:34 | Emergency (ER) | payer MEDICARE, BC ==
[2024-10-16] MEDS ORDERED: Sodium Chloride 0.9% 10 ML Syringe FLUSH PRN (11:41)
[2024-10-16 11:57] LABS: BASOPHILS ABSOLUTE AUTO 0.1 x10-3/uL (0.0-0.1); BASOPHILS PERCENT AUTO 0.9 % (0.2-1.5); EOSINOPHILS ABSOLUTE AUTO 0.4 x10-3/uL (0.0-0.8); EOSINOPHILS PERCENT AUTO 4.6 % (0.6-8.1); LYMPHOCYTES ABSOLUTE AUTO 2.1 x10-3/uL (1.0-4.4); LYMPHOCYTES PERCENT AUTO 22.9 % (18.4-52.1); MEAN PLATELET VOLUME 8.8 fL (7.1-12.4); MONOCYTES ABSOLUTE AUTO 1.0 x10-3/uL (0.3-1.0); MONOCYTES PERCENT AUTO 11.0 % (4.4-15.7); NEUTROPHILS ABSOLUTE AUTO 5.6 x10-3/uL (1.5-6.3); NEUTROPHILS PERCENT AUTO 60.6 % (30.8-76.2); PLATELET COUNT,PLT 291 x10(3)uL (151-488); RED BLOOD CELL COUNT 4.07 x10(6)uL (3.60-5.20); RED CELL DISTRIBUTION WIDTH 14.7 % (12.3-16.5); WHITE BLOOD CELL COUNT,WBC 9.3 x10-3/uL (3.0-10.3)
[2024-10-16 12:05] LABS: BLOOD UREA NITROGEN,BUN 30 mg/dL (7-18); CARBON DIOXIDE,CO2 34 mmol/L (21-32); CHLORIDE,CL 106 mmol/L (100-110); CREATININE 1.3 mg/dL (0.55-1.02); ESTIMATED GFR 41 mL/min (>60); GLUCOSE RANDOM 88 mg/dL (80-116); POTASSIUM,K 4.5 mmol/L (3.5-5.3); SODIUM,NA 145 mmol/L (135-145)
[2024-10-16 12:08] LABS: INR 2.28 (1.00-1.24)
[2024-10-16 12:16] LABS: A/G RATIO 0.7; ALANINE AMINOTRANSFERASE,ALT 17 U/L (12-36); ASPARTATE AMNIOTRANSFERASE,AST 20 IU/L (5-25); BILIRUBIN TOTAL 0.5 mg/dL (0.1-1.3); PROTEIN TOTAL,TP 7.4 g/dL (6.0-8.0)
[2024-10-16 12:29] LABS: SEDIMENTATION RATE MANUAL 49 mm/hr (0-20)
[2024-10-16] MEDS: Iopamidol 755 Mg/ML 100 ML Bottle IV SCH (13:21)
[2024-10-16 18:10] VITALS: BP 111/58; PULSE 78
== END 2024-10-16 17:15 ==
LOC: FB.ED 11:34
DX: R68.84 Jaw pain (principal); G89.29 Other chronic pain; R94.31 Abnormal electrocardiogram [ECG] [EKG]; I48.91 Unspecified atrial fibrillation; I11.0 Hypertensive heart disease with heart failure; I50.9 Heart failure, unspecified; I25.10 Atherosclerotic heart disease of native coronary artery without angina pectoris; Z86.73 Personal history of transient ischemic attack (TIA), and cerebral infarction without residual deficits; Z79.82 Long term (current) use of aspirin; Z79.899 Other long term (current) drug therapy; Z79.01 Long term (current) use of anticoagulants
CPT/HCPCS: 36415; 70487; 80053; 83605; 83735; 84484; 85025; 85610; 85651; 86140; 93005; 99285; J7040; Q9967; 93010; 99284